=== PATIENT | male | born 1955 | race Caucasian/White ===

== ENCOUNTER 2021-03-10 10:59 | Inpatient (IN) | payer MEDICARE, BC ==
[2021-03-10] MEDS ORDERED: Acetaminophen 325 MG Tab PO PRN (12:56)
[2021-03-10] MEDS ORDERED: REMDESIVIR 200 MG in Sodium Chloride 0.9% 250 ML IV ONE ×2 (12:56→14:00)
[2021-03-10] MEDS ORDERED: Dexamethasone 4 MG/ML SDV IVPUSH SCH (13:00)
--- NOTE | 2021-03-10 13:01 | EDM.PDOC ---
ED HPI GENERAL MEDICAL PROBLEM - General Chief Complaint: Respiratory Problem Stated Complaint: COVID POS Time Seen by Provider: 03/10/21 12:55 Source of Information: Reports: Patient, Family, RN Notes Reviewed History Limitations: Reports: No Limitations - History of Present Illness INITIAL COMMENTS - FREE TEXT/NARRATIVE: 65-year-old gentleman presents emergency department today with shortness of breath and body aches. He states he was recently diagnosed with COVID-19 about a week ago he is unvaccinated has had fevers - Related Data Allergies Allergy/AdvReac Type Severity Reaction Status Date / Time hydrochlorothiazide Allergy Severe Anaphylactic Verified 03/10/21 11:37 Shock amlodipine Allergy Dizziness Verified 03/10/21 11:37 Home Meds: Home Meds Temazepam [Restoril] 30 mg PO BEDTIME 03/30/13 [History] Lisinopril 40 mg PO DAILY 09/27/14 [History] Aspirin 1,000 mg PO BID 04/22/18 [History] Metoprolol Succinate [Toprol XL 100mg] 100 mg PO DAILY 04/22/18 [History] Rivaroxaban [Xarelto] 20 mg PO DAILY 04/22/18 [History] cloNIDine HCL [Catapres] 0.1 mg PO BID 04/22/18 [History] Doxycycline [Doxycycline Hyclate] 100 mg PO Q12HR 03/10/21 [History] Past Medical History HEENT History: Reports: Other (See Below) 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 Cardiovascular History: Reports: Aneurysm, Blood Clots/VTE/DVT, High Cholesterol, Hypertension, Other (See Below) Other Cardiovascular History: englarged aorta Gastrointestinal History: Reports: Colon Polyp Musculoskeletal History: Reports: Arthritis, Back Pain, Chronic Endocrine/Metabolic History: Reports: Obesity/BMI 30+ Hematologic History: Reports: Anticoagulation Therapy Oncologic (Cancer) History: Reports: Squamous Cell Carcinoma - Infectious Disease History Infectious Disease History: Reports: Novel Coronavirus - Past Surgical History Head Surgeries/Procedures: Reports: None HEENT Surgical History: Reports: Naso-Sinus Surgery, Other (See Below) Other HEENT Surgeries/Procedures: 01/02/2006 surgery to remove tongue base cancer Cardiovascular Surgical History: Reports: None GI Surgical History: Reports: Appendectomy, Colonoscopy Male Surgical History: Reports: Vasectomy Endocrine Surgical History: Reports: None Musculoskeletal Surgical History: Reports: Arthroscopic Knee, Shoulder Surgery, Other (See Below) Other Musculoskeletal Surgeries/Procedures:: non-malignant arm pit turmor removed Oncologic Surgical History: Reports: Other (See Below) Other Oncologic Surgeries/Procedures: non-malignant tumor removed from arm-pit; squamous cell base of tongue Dermatological Surgical History: Reports: None Social & Family History - Family History Cardiac: Reports: Heart Failure Respiratory: Reports: COPD Oncologic: Reports: Cervix, Esophageal, Thyroid - Tobacco Use Tobacco Use Status *Q: Never Tobacco User Second Hand Smoke Exposure: No - Caffeine Use Caffeine Use: Reports: Coffee - Recreational Drug Use Recreational Drug Use: No ED ROS GENERAL - Review of Systems Review Of Systems: See Below Constitutional: Reports: Fever, Chills, Weakness, Fatigue HEENT: Reports: No Symptoms Respiratory: Reports: Shortness of Breath, Cough Cardiovascular: Reports: Dyspnea on Exertion GI/Abdominal: Reports: No Symptoms ED EXAM, GENERAL - Physical Exam Exam: See Below Exam Limited By: No Limitations General Appearance: Alert, WD/WN, No Apparent Distress Respiratory/Chest: No Respiratory Distress, Lungs Clear, Normal Breath Sounds, No Accessory Muscle Use, Chest Non-Tender Cardiovascular: Regular Rate, Rhythm, No Murmur GI/Abdominal: Soft, Non-Tender Course - Vital Signs Last Recorded V/S: Last Vital Signs Temp 97.7 F 03/10/21 11:36 Pulse 93 03/10/21 11:36 Resp 20 03/10/21 11:36 BP 96/66 03/10/21 11:36 Pulse Ox 89 L 03/10/21 11:36 - Orders/Labs/Meds Orders: Active Orders 24 hr Category Date Time Status HEPATIC FUNCTION PANEL,HFP [CHEM] DAILY Lab 03/11/21 13:00 Ordered HEPATIC FUNCTION PANEL,HFP [CHEM] DAILY Lab 03/12/21 13:00 Ordered HEPATIC FUNCTION PANEL,HFP [CHEM] DAILY Lab 03/13/21 13:00 Ordered HEPATIC FUNCTION PANEL,HFP [CHEM] DAILY Lab 03/14/21 13:00 Ordered Acetaminophen [TylenoL] Med 03/10/21 12:56 Active 650 mg PO Q4H PRN Remdesivir 200 mg Med 03/10/21 14:00 Active Sodium Chloride 0.9% [Normal Saline] 250 ml IV ONETIME dexAMETHasone [Decadron] Med 03/10/21 13:00 Active 6 mg IVPUSH DAILY Isolation [COMM] Stat Oth 03/10/21 12:56 Ordered Medication Orders Acetaminophen (Acetaminophen 325 Mg Tab) 650 mg PO Q4H PRN PRN Reason: Fever Greater Than 101 Last Admin: 03/10/21 13:34 Dose: 650 mg Documented by: MAYE Dexamethasone (Dexamethasone 4 Mg/Ml Sdv) 6 mg IVPUSH DAILY SAM Stop: 03/19/21 09:01 Last Admin: 03/10/21 13:32 Dose: 6 mg Documented by: MAYE Remdesivir 200 mg/ Sodium (Chloride) 250 mls @ 250 mls/hr IV ONETIME ONE Stop: 03/10/21 14:59 Last Admin: 03/10/21 13:36 Dose: 250 mls/hr Documented by: MAYE Labs: Laboratory Tests 03/10/21 03/10/21 03/10/21 Range/Units 13:12 13:12 13:12 WBC 6.3 (4.5-11.0) K/uL RBC 4.77 (4.30-5.90) M/uL Hgb 14.4 D (12.0-15.0) g/dL Hct 44.0 (40.0-54.0) % MCV 92 (80-98) fL MCH 30 (27-31) pg MCHC 33 (32-36) % Plt Count 173 (150-400) K/uL Neut % (Auto) 83.6 H (36-66) % Lymph % (Auto) 5.7 L (24-44) % [place] % (Auto) 10.5 H (2-6) % Eos % (Auto) 0.0 L (2-4) % Baso % (Auto) 0.2 (0-1) % Sodium 139 L (140-148) mmol/L Potassium 5.7 H (3.6-5.2) mmol/L Chloride 101 (100-108) mmol/L Carbon Dioxide 25 (21-32) mmol/L Anion Gap 18.7 H (5.0-14.0) mmol/L BUN 49 H D (7-18) mg/dL Creatinine 0.9 (0.8-1.3) mg/dL Est Cr Clr Drug Dosing 81.83 mL/min Estimated GFR (MDRD) > 60 (>60) Glucose 174 H (74-106) mg/dL Lactic Acid 1.6 (0.4-2.0) mmol/L Calcium 9.2 (8.5-10.1) mg/dL Total Bilirubin 0.7 D (0.2-1.0) mg/dL Direct Bilirubin 0.05 (0.0-0.2) mg/dL Indirect Bilirubin TNP AST 43 H (15-37) U/L ALT 38 (12-78) U/L Alkaline Phosphatase 54 (46-116) U/L C-Reactive Protein 12.33 H (0.0-0.3) mg/dL Total Protein 6.5 (6.4-8.2) g/dL Albumin 2.8 L (3.4-5.0) g/dL Globulin 3.7 H (2.3-3.5) g/dL Albumin/Globulin Ratio 0.8 L (1.2-2.2) Procalcitonin ng/mL 03/10/21 Range/Units 13:12 WBC (4.5-11.0) K/uL RBC (4.30-5.90) M/uL Hgb (12.0-15.0) g/dL Hct (40.0-54.0) % MCV (80-98) fL MCH (27-31) pg MCHC (32-36) % Plt Count (150-400) K/uL Neut % (Auto) (36-66) % Lymph % (Auto) (24-44) % [place] % (Auto) (2-6) % Eos % (Auto) (2-4) % Baso % (Auto) (0-1) % Sodium (140-148) mmol/L Potassium (3.6-5.2) mmol/L Chloride (100-108) mmol/L Carbon Dioxide (21-32) mmol/L Anion Gap (5.0-14.0) mmol/L BUN (7-18) mg/dL Creatinine (0.8-1.3) mg/dL Est Cr Clr Drug Dosing mL/min Estimated GFR (MDRD) (>60) Glucose (74-106) mg/dL Lactic Acid (0.4-2.0) mmol/L Calcium (8.5-10.1) mg/dL Total Bilirubin (0.2-1.0) mg/dL Direct Bilirubin (0.0-0.2) mg/dL Indirect Bilirubin AST (15-37) U/L ALT (12-78) U/L Alkaline Phosphatase (46-116) U/L C-Reactive Protein (0.0-0.3) mg/dL Total Protein (6.4-8.2) g/dL Albumin (3.4-5.0) g/dL Globulin (2.3-3.5) g/dL Albumin/Globulin Ratio (1.2-2.2) Procalcitonin 0.07 ng/mL Meds: Medications Generic Name Dose Route Start Last Admin Trade Name Freq PRN Reason Stop Dose Admin Acetaminophen 650 mg 03/10/21 12:56 03/10/21 13:34 Acetaminophen 325 Mg Tab PO 650 mg Q4H PRN Administration Fever Greater Than 101 Dexamethasone 6 mg 03/10/21 13:00 03/10/21 13:32 Dexamethasone 4 Mg/Ml Sdv IVPUSH 03/19/21 09:01 6 mg DAILY SAM Administration Remdesivir 200 mg/ Sodium 250 mls @ 250 mls/hr 03/10/21 14:00 03/10/21 13:36 Chloride IV 03/10/21 14:59 250 mls/hr ONETIME ONE Administration Departure - Departure Time of Disposition: 14:10 Disposition: Admitted As Inpatient 66 Condition: Fair Clinical Impression: COVID-19 - Discharge Information Referrals: PCP,Unknown [Primary Care Provider] - Forms: ED Department Discharge Sepsis Event Note (ED) - Focused Exam Vital Signs: Vital Signs Temp Pulse Resp BP Pulse Ox 03/10/21 11:36 97.7 F 93 20 96/66 89 L 03/10/21 11:29 97.7 F 93 20 96/66 89 L - My Orders Last 24 Hours: My Active Orders 03/10/21 12:56 Acetaminophen [TylenoL] 650 mg PO Q4H PRN Isolation [COMM] Stat 03/10/21 13:00 dexAMETHasone [Decadron] 6 mg IVPUSH DAILY 03/10/21 14:00 Remdesivir 200 mg Sodium Chloride 0.9% [Normal Saline] 250 ml IV ONETIME 03/11/21 13:00 HEPATIC FUNCTION PANEL,HFP [CHEM] DAILY 03/12/21 13:00 HEPATIC FUNCTION PANEL,HFP [CHEM] DAILY 03/13/21 13:00 HEPATIC FUNCTION PANEL,HFP [CHEM] DAILY 03/14/21 13:00 HEPATIC FUNCTION PANEL,HFP [CHEM] DAILY - Assessment/Plan Last 24 Hours: My Active Orders 03/10/21 12:56 Acetaminophen [TylenoL] 650 mg PO Q4H PRN Isolation [COMM] Stat 03/10/21 13:00 dexAMETHasone [Decadron] 6 mg IVPUSH DAILY 03/10/21 14:00 Remdesivir 200 mg Sodium Chloride 0.9% [Normal Saline] 250 ml IV ONETIME 03/11/21 13:00 HEPATIC FUNCTION PANEL,HFP [CHEM] DAILY 03/12/21 13:00 HEPATIC FUNCTION PANEL,HFP [CHEM] DAILY 03/13/21 13:00 HEPATIC FUNCTION PANEL,HFP [CHEM] DAILY 03/14/21 13:00 HEPATIC FUNCTION PANEL,HFP [CHEM] DAILY Plan: Assessment Acuity = acute Site and laterality = viral syndrome with hypoxia Etiology = COVID-19 Manifestations = none Location of injury = Home Lab values = CBC unremarkable, potassium elevated 5.7 consistent with hyperkalemia lactic acid normal 1.6 CRP elevated 4.3 procalcitonin low at 0.07 Plan Call discussed case with hospitalist on-call agreed to come evaluate patient emergency department for admission remdesivir, dexamethasone and Lovenox in the emergency department This note was dictated using [employer] voice recognition software please call with any questions on syntax or grammar.
--- NOTE | 2021-03-10 14:06 | CR ---
CHEST: Portable 03/10/2021 at 1:34 PM CLINICAL HISTORY:Respiratory failure COMPARISON:CT 2017 FINDINGS: The heart is enlarged. Pulmonary vascularity is normal. There are atherosclerotic changes in the aorta. There are patchy bilateral infiltrates left greater than right. There are no effusions. IMPRESSION: Bilateral pneumonic infiltrates left greater than right Cardiomegaly
--- NOTE | 2021-03-10 18:39 | CRLUS ---
For Patients: As a result of the Cures Act, medical imaging exams and procedure reports are released immediately into your electronic medical record. You may view this report before your referring provider. If you have questions, please contact your health care provider. INDICATION: Ascites. TECHNIQUE: Limited grayscale examination of the abdomen to evaluate for ascites. COMPARISON: None. FINDINGS: No ascites demonstrated. IMPRESSION: No ascites demonstrated. Dictated by Jony Sharma MD @ 03/10/2021 6:38:15 PM (Electronically Signed)
--- NOTE | 2021-03-10 20:31 | PCM.HP.2 ---
H&P History of Present Illness - General Date of Service: 03/10/21 Admit Problem/Dx: Admission Diagnosis/Problem Admission Diagnosis/Problem Hypoxia Source of Information: Patient History Limitations: Reports: No Limitations - History of Present Illness Initial Comments - Free Text/Narative: Mr. Yo is a 65-year-old male with a remote history (2005) of squamous cell carcinoma of the tongue and a current aortic aneurysm who presents with shortness of breath and body aches. He was diagnosed with COVID-19 a week ago and has been having fevers chills and difficulty breathing since that time. He is unvaccinated for COVID-19. He states that he has been told he may need surgery on his aortic aneurysm. He also has a history of blood clots in his lower extremities which he takes rivaroxaban for. Over the past few months he has noticed that he has lost a significant amount of weight. He is a former chronic heavy drinker who quit drinking recently. He states that he has noticed that the size of his abdomen has increased significantly over time. He states that his abdomen sometimes becomes uncomfortable especially with laying down. He also states that he is no longer able to lay on his stomach. - Related Data Allergies/Adverse Reactions: Allergies Allergy/AdvReac Type Severity Reaction Status Date / Time hydrochlorothiazide Allergy Severe Anaphylactic Verified 03/10/21 11:37 Shock amlodipine Allergy Dizziness Verified 03/10/21 11:37 Home Medications: Home Meds Temazepam [Restoril] 30 mg PO BEDTIME 03/30/13 [History] Lisinopril 40 mg PO DAILY 09/27/14 [History] Aspirin 1,000 mg PO BID 04/22/18 [History] Metoprolol Succinate [Toprol XL 100mg] 100 mg PO DAILY 04/22/18 [History] Rivaroxaban [Xarelto] 20 mg PO DAILY 04/22/18 [History] cloNIDine HCL [Catapres] 0.1 mg PO BID 04/22/18 [History] Doxycycline [Doxycycline Hyclate] 100 mg PO Q12HR 03/10/21 [History] Past Medical History HEENT History: Reports: Other (See Below) 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 Cardiovascular History: Reports: Aneurysm, Blood Clots/VTE/DVT, High Cholesterol, Hypertension, Other (See Below) Other Cardiovascular History: enlarged aorta Gastrointestinal History: Reports: Colon Polyp Genitourinary History: Reports: None Musculoskeletal History: Reports: Arthritis, Back Pain, Chronic Endocrine/Metabolic History: Reports: Obesity/BMI 30+ Hematologic History: Reports: Anticoagulation Therapy Oncologic (Cancer) History: Reports: Squamous Cell Carcinoma - Infectious Disease History Infectious Disease History: Reports: Novel Coronavirus - Past Surgical History Head Surgeries/Procedures: Reports: None HEENT Surgical History: Reports: Naso-Sinus Surgery, Other (See Below) Other HEENT Surgeries/Procedures: 01/02/2006 surgery to remove tongue base cancer Cardiovascular Surgical History: Reports: None GI Surgical History: Reports: Appendectomy, Colonoscopy Male Surgical History: Reports: Vasectomy Endocrine Surgical History: Reports: None Musculoskeletal Surgical History: Reports: Arthroscopic Knee, Shoulder Surgery, Other (See Below) Other Musculoskeletal Surgeries/Procedures:: non-malignant arm pit turmor rem tino Oncologic Surgical History: Reports: Other (See Below) Other Oncologic Surgeries/Procedures: non-malignant tumor removed from arm-pit; squamous cell base of tongue Dermatological Surgical History: Reports: None Social & Family History - Family History Family Medical History: No Pertinent Family History Cardiac: Reports: Heart Failure Respiratory: Reports: COPD Oncologic: Reports: Cervix, Esophageal, Thyroid - Tobacco Use Tobacco Use Status *Q: Never Tobacco User Second Hand Smoke Exposure: No - Caffeine Use Caffeine Use: Reports: Coffee - Alcohol Use Days Per Week of Alcohol Use: 5 Number of Drinks Per Day: 2 Total Drinks Per Week: 10 Date of Last Drink: 02/25/21 Time of Last Drink: 21:00 - Recreational Drug Use Recreational Drug Use: No H&P Review of Systems - Review of Systems: Review Of Systems: See Below General: Reports: Fever, Chills, Malaise, Fatigue, Decreased Appetite, Weight Loss HEENT: Reports: No Symptoms Pulmonary: Reports: Shortness of Breath Cardiovascular: Reports: Other (Aortic aneurysm) Gastrointestinal: Reports: Distension, Other (Abdominal discomfort) Genitourinary: Reports: No Symptoms Musculoskeletal: Reports: Neck Pain, Back Pain Skin: Reports: No Symptoms Psychiatric: Reports: No Symptoms Neurological: Reports: No Symptoms Hematologic/Lymphatic: Reports: Other (Chronic anticoagulation therapy) Exam - Exam Exam: See Below - Vital Signs Vital Signs: Last Vital Signs Temp 96.8 F L 03/10/21 19:00 Pulse 93 03/10/21 19:00 Resp 18 03/10/21 19:00 BP 126/86 03/10/21 19:00 Pulse Ox 96 03/10/21 20:00 Weight: 216 lb - Exam Quality Assessment: Supplemental Oxygen General: Alert, Oriented, 4 HEENT: Conjunctiva Clear, EOMI, Hearing Intact, Mucosa Moist & [place] Neck: Supple, Trachea Midline, 2 Lungs: Clear to Auscultation, Normal Respiratory Effort Cardiovascular: Regular Rate, Regular Rhythm GI/Abdominal Exam: Normal Bowel Sounds, Soft, Non-Tender, No Abnormal Bruit, Distended (Male) Exam: Circumcised Extremities: Normal Inspection, Non-Tender, No Pedal Edema Skin: Warm, Dry, Intact Neuro Extensive - Mental Status: Alert, Oriented x3, Normal Mood/Affect, Normal Cognition Psychiatric: Alert, Normal Affect, Normal Mood - Patient Data Lab Results Last 24 hrs: Laboratory Results - last 24 hr 03/10/21 03/10/21 03/10/21 Range/Units 13:12 13:12 13:12 WBC 6.3 (4.5-11.0) K/uL RBC 4.77 (4.30-5.90) M/uL Hgb 14.4 D (12.0-15.0) g/dL Hct 44.0 (40.0-54.0) % MCV 92 (80-98) fL MCH 30 (27-31) pg MCHC 33 (32-36) % Plt Count 173 (150-400) K/uL Neut % (Auto) 83.6 H (36-66) % Lymph % (Auto) 5.7 L (24-44) % [place] % (Auto) 10.5 H (2-6) % Eos % (Auto) 0.0 L (2-4) % Baso % (Auto) 0.2 (0-1) % Sodium 139 L (140-148) mmol/L Potassium 5.7 H (3.6-5.2) mmol/L Chloride 101 (100-108) mmol/L Carbon Dioxide 25 (21-32) mmol/L Anion Gap 18.7 H (5.0-14.0) mmol/L BUN 49 H D (7-18) mg/dL Creatinine 0.9 (0.8-1.3) mg/dL Est Cr Clr Drug Dosing 81.83 mL/min Estimated GFR (MDRD) > 60 (>60) Glucose 174 H (74-106) mg/dL Lactic Acid 1.6 (0.4-2.0) mmol/L Calcium 9.2 (8.5-10.1) mg/dL Total Bilirubin 0.7 D (0.2-1.0) mg/dL Direct Bilirubin 0.05 (0.0-0.2) mg/dL Indirect Bilirubin TNP AST 43 H (15-37) U/L ALT 38 (12-78) U/L Alkaline Phosphatase 54 (46-116) U/L C-Reactive Protein 12.33 H (0.0-0.3) mg/dL Total Protein 6.5 (6.4-8.2) g/dL Albumin 2.8 L (3.4-5.0) g/dL Globulin 3.7 H (2.3-3.5) g/dL Albumin/Globulin Ratio 0.8 L (1.2-2.2) Procalcitonin ng/mL 03/10/21 Range/Units 13:12 WBC (4.5-11.0) K/uL RBC (4.30-5.90) M/uL Hgb (12.0-15.0) g/dL Hct (40.0-54.0) % MCV (80-98) fL MCH (27-31) pg MCHC (32-36) % Plt Count (150-400) K/uL Neut % (Auto) (36-66) % Lymph % (Auto) (24-44) % [place] % (Auto) (2-6) % Eos % (Auto) (2-4) % Baso % (Auto) (0-1) % Sodium (140-148) mmol/L Potassium (3.6-5.2) mmol/L Chloride (100-108) mmol/L Carbon Dioxide (21-32) mmol/L Anion Gap (5.0-14.0) mmol/L BUN (7-18) mg/dL Creatinine (0.8-1.3) mg/dL Est Cr Clr Drug Dosing mL/min Estimated GFR (MDRD) (>60) Glucose (74-106) mg/dL Lactic Acid (0.4-2.0) mmol/L Calcium (8.5-10.1) mg/dL Total Bilirubin (0.2-1.0) mg/dL Direct Bilirubin (0.0-0.2) mg/dL Indirect Bilirubin AST (15-37) U/L ALT (12-78) U/L Alkaline Phosphatase (46-116) U/L C-Reactive Protein (0.0-0.3) mg/dL Total Protein (6.4-8.2) g/dL Albumin (3.4-5.0) g/dL Globulin (2.3-3.5) g/dL Albumin/Globulin Ratio (1.2-2.2) Procalcitonin 0.07 ng/mL Result Diagrams: 03/10/21 13:12 03/10/21 13:12 Sepsis Event Note - Evaluation Sepsis Screening Result: No Definite Risk - Focused Exam Vital Signs: Vital Signs Temp Pulse Resp BP Pulse Ox 03/10/21 20:00 96 03/10/21 19:56 96 03/10/21 19:00 96.8 F L 93 18 126/86 94 L 03/10/21 16:11 89 L 03/10/21 15:27 97.4 F 89 20 119/77 90 L 03/10/21 11:36 97.7 F 93 20 96/66 89 L 03/10/21 11:29 97.7 F 93 20 96/66 89 L - Problem List (1) Unintentional weight loss SNOMED Code(s): 892924368 ICD Code: R63.4 - ABNORMAL WEIGHT LOSS Status: Acute Current Visit: Yes (2) COVID-19 SNOMED Code(s): 837585451 ICD Code: U07.1 - COVID-19 Status: Acute Current Visit: Yes (3) AA (aortic aneurysm) SNOMED Code(s): 85084471 ICD Code: I71.9 - AORTIC ANEURYSM OF UNSPECIFIED SITE, WITHOUT RUPTURE Status: Chronic Current Visit: No (4) Essential hypertension SNOMED Code(s): 53580300 ICD Code: I10 - ESSENTIAL (PRIMARY) HYPERTENSION Status: Chronic Current Visit: No (5) History of squamous cell carcinoma SNOMED Code(s): 55890592087206 ICD Code: Z85.89 - PERSONAL HISTORY OF MALIGNANT NEOPLASM OF ORGANS AND SYSTEMS Status: Chronic Current Visit: No Problem List Initiated/Reviewed/Updated: Yes Orders Last 24hrs: Active Orders 24 hr Category Date Time Status Admission Status [Patient Status] [ADT] Routine ADT 03/10/21 14:22 Active Cardiac Monitoring [RC] CONTINUOUS Care 03/10/21 14:22 Active Overnight Pulse Oximetry [RC] Click to Edit Care 03/10/21 15:38 Active Oxygen Therapy [RC] PRN Care 03/10/21 15:57 Active Vital Signs [RC] Q4H Care 03/10/21 15:57 Active Heart Healthy Diet [DIET] Diet 03/10/21 Dinner Active HEPATIC FUNCTION PANEL,HFP [CHEM] DAILY Lab 03/11/21 13:00 Ordered HEPATIC FUNCTION PANEL,HFP [CHEM] DAILY Lab 03/12/21 13:00 Ordered HEPATIC FUNCTION PANEL,HFP [CHEM] DAILY Lab 03/13/21 13:00 Ordered HEPATIC FUNCTION PANEL,HFP [CHEM] DAILY Lab 03/14/21 13:00 Ordered Acetaminophen [TylenoL] Med 03/10/21 12:56 Active 650 mg PO Q4H PRN Acetaminophen/Codeine [Tylenol with Codeine No.3 300MG/ Med 03/10/21 20:13 Active 30MG] 1 tab PO Q4H PRN Metoprolol Succinate [Toprol XL] Med 03/11/21 09:00 Active 100 mg PO DAILY Remdesivir 100 mg Med 03/11/21 14:00 Active Sodium Chloride 0.9% [Normal Saline] 100 ml IV Q24H Rivaroxaban [Xarelto] Med 03/11/21 09:00 Active 20 mg PO DAILY Temazepam [Restoril] Med 03/10/21 21:00 Active 30 mg PO BEDTIME cloNIDine [Catapres] Med 03/10/21 21:00 Active 0.1 mg PO BID dexAMETHasone [Decadron] Med 03/11/21 14:00 Active 6 mg IVPUSH Q24H lisinopriL [Prinivil] Med 03/11/21 09:00 Active 40 mg PO DAILY Isolation [COMM] Stat Oth 03/10/21 12:56 Ordered Pulse Oximetry Continuous Monitoring [OM.PC] Routine Oth 03/10/21 15:38 Ordered Medication Orders Acetaminophen (Acetaminophen 325 Mg Tab) 650 mg PO Q4H PRN PRN Reason: Fever Greater Than 101 Last Admin: 03/10/21 13:34 Dose: 650 mg Documented by: MAYE Acetaminophen/Codeine Phosphate (Acetaminophen/Codeine 300-30 Mg Tab) 1 tab PO Q4H PRN PRN Reason: Pain Clonidine HCl (Clonidine 0.1 Mg Tab) 0.1 mg PO BID [facility] Dexamethasone (Dexamethasone 4 Mg/Ml Sdv) 6 mg IVPUSH Q24H [facility] Stop: 03/20/21 14:01 Remdesivir 100 mg/ Sodium (Chloride) 100 mls @ 100 mls/hr IV Q24H [facility] Stop: 03/14/21 14:59 Lisinopril (Lisinopril 20 Mg Tab) 40 mg PO DAILY SAM Metoprolol Succinate (Metoprolol Succinate 50 Mg Tab.Er) 100 mg PO DAILY [facility] Rivaroxaban (Rivaroxaban 10 Mg Tab) 20 mg PO DAILY [facility] Temazepam (Temazepam 15 Mg Cap) 30 mg PO BEDTIME [facility] Assessment/Plan Comment:: COVID-19 pneumonia requiring supplemental oxygen -Has received remdesivir loading dose will continue with additional days -On rivaroxaban so will not be using enoxaparin -Decadron 6 mg daily for 10 days -Will monitor for hypoxia and supplement for SPO2 less than 90% Unintentional weight loss and abdominal distention -He does have a history of cancer so this unintentional weight loss is concerning. He also has a significant history for alcohol abuse and dependency which he has quit. I am concerned that he may have liver disease with ascites so I have ordered an abdominal ultrasound. 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 I reasonably expect the patient will require inpatient services that span a period of over 2 midnights. My rationale for medically necessary inpatient care will be found in the admission history and physical and progress notes. I reasonably expect the patient to be discharged or transferred within 96 hours after [facility] Disposition: home with self-care on discharge Plan: We will do the full course of remdesivir, continue his anticoagulation with rivaroxaban and give Decadron. I am going to get an abdominal ultrasound to evaluate his liver. If I do not find a cause of his unintentional weight loss this will have to be worked up outpatient as it is not an acute issue. - Mortality Measure Prognosis:: Good
[2021-03-10] MEDS: cloNIDine 0.1 MG Tab PO SCH (20:52)
[2021-03-10] MEDS: Temazepam 15 MG Cap PO SCH (20:52)
[2021-03-10] MEDS: Acetaminophen/Codeine 300-30 MG Tab PO PRN (20:53)
[2021-03-11] MEDS: Acetaminophen/Codeine 300-30 MG Tab PO PRN (03:49)
[2021-03-11] MEDS: cloNIDine 0.1 MG Tab PO SCH ×2 (08:27→21:49)
[2021-03-11] MEDS: Lisinopril 20 MG Tab PO SCH (08:27)
[2021-03-11] MEDS: Metoprolol Succinate 50 MG Tab.ER PO SCH (08:27)
[2021-03-11] MEDS: Rivaroxaban 10 MG Tab PO SCH (08:28)
[2021-03-11] MEDS ORDERED: Enoxaparin 40 MG/0.4 ML Syringe SUBCUT SCH (09:00)
[2021-03-11] MEDS: Dexamethasone 4 MG/ML SDV IVPUSH SCH (13:34)
[2021-03-11] MEDS: REMDESIVIR 100 MG in Sodium Chloride 0.9% 100 ML IV SCH (13:35)
--- NOTE | 2021-03-11 19:15 | PCM.PN ---
- General Info Date of Service: 03/11/21 Admission Dx/Problem (Free Text): Admission Diagnosis/Problem Admission Diagnosis/Problem Hypoxia Subjective Update: Mr. Villanueva is doing okay today. He is requiring increasing supplementary oxygen needs. We are having difficulty getting cardiac capture on his leads as he has a very hairy chest. Occasionally on the monitor it will look like he is in ventricular fibrillation however I did examine him during 1 of these episodes today and he was within his regular rate. Movement of his right arm is causing the artifact that appears to be ventricular fibrillation even though it is not. He is feeling lethargic today. - Review of Systems General: Reports: Fatigue HEENT: Reports: No Symptoms Pulmonary: Reports: No Symptoms Cardiovascular: Reports: No Symptoms Gastrointestinal: Reports: No Symptoms Genitourinary: Reports: No Symptoms Musculoskeletal: Reports: No Symptoms Skin: Reports: No Symptoms Neurological: Reports: No Symptoms Psychiatric: Reports: No Symptoms - Patient Data Vitals - Most Recent: Last Vital Signs Temp 96.6 F L 03/11/21 15:00 Pulse 90 03/11/21 15:00 Resp 18 03/11/21 15:00 BP 91/61 03/11/21 11:08 Pulse Ox 93 L 03/11/21 15:00 Weight - Most Recent: 216 lb I&O - Last 24 Hours: Intake & Output 03/11/21 03/11/21 03/11/21 06:59 14:59 22:59 Intake Total 580 360 Output Total 500 200 100 Balance -500 380 260 Lab Results Last 24 Hours: Laboratory Results - last 24 hr 03/11/21 Range/Units 07:12 Total Bilirubin 0.4 (0.2-1.0) mg/dL Direct Bilirubin 0.14 (0.0-0.2) mg/dL Indirect Bilirubin 0.26 AST 18 (15-37) U/L ALT 32 (12-78) U/L Alkaline Phosphatase 54 (46-116) U/L Total Protein 5.8 L (6.4-8.2) g/dL Albumin 2.6 L (3.4-5.0) g/dL Globulin 3.2 (2.3-3.5) g/dL Albumin/Globulin Ratio 0.8 L (1.2-2.2) Med Orders - Current: Current Medications Acetaminophen (Acetaminophen 325 Mg Tab) 650 mg PO Q4H PRN PRN Reason: Fever Greater Than 101 Last Admin: 03/10/21 13:34 Dose: 650 mg Documented by: Acetaminophen/Codeine Phosphate (Acetaminophen/Codeine 300-30 Mg Tab) 1 tab PO Q4H PRN PRN Reason: Pain Last Admin: 03/11/21 03:49 Dose: 1 tab Documented by: Clonidine HCl (Clonidine 0.1 Mg Tab) 0.1 mg PO BID [facility] Last Admin: 03/11/21 08:27 Dose: 0.1 mg Documented by: Dexamethasone (Dexamethasone 4 Mg/Ml Sdv) 6 mg IVPUSH Q24H SAM Stop: 03/20/21 14:01 Last Admin: 03/11/21 13:34 Dose: 6 mg Documented by: Remdesivir 100 mg/ Sodium (Chloride) 100 mls @ 100 mls/hr IV Q24H SAM Stop: 03/14/21 14:59 Last Admin: 03/11/21 13:35 Dose: 100 mls/hr Documented by: Lisinopril (Lisinopril 20 Mg Tab) 40 mg PO DAILY [facility] Last Admin: 03/11/21 08:27 Dose: 40 mg Documented by: Metoprolol Succinate (Metoprolol Succinate 50 Mg Tab.Er) 100 mg PO DAILY [facility] [place] Last Admin: 03/11/21 08:27 Dose: 100 mg Documented by: Rivaroxaban (Rivaroxaban 10 Mg Tab) 20 mg PO DAILY [facility] Last Admin: 03/11/21 08:28 Dose: 20 mg Documented by: Temazepam (Temazepam 15 Mg Cap) 30 mg PO BEDTIME [facility] Last Admin: 03/10/21 20:52 Dose: 30 mg Documented by: Trolamine Salicylate (Trolamine Salicylate/Aloe Vera 10% Crm 85 Gm Tube) 0 gm TOP Q1H PRN PRN Reason: Pain/Fever Discontinued Medications Dexamethasone (Dexamethasone 4 Mg/Ml Sdv) 6 mg IVPUSH DAILY [facility] Stop: 03/19/21 09:01 Last Admin: 03/10/21 13:32 Dose: 6 mg Documented by: Enoxaparin Sodium (Enoxaparin 40 Mg/0.4 Ml Syringe) 40 mg SUBCUT DAILY [facility] Remdesivir 200 mg/ Sodium (Chloride) 250 mls @ 250 mls/hr IV ONETIME ONE Stop: 03/10/21 14:59 Last Admin: 03/10/21 13:36 Dose: 250 mls/hr Documented by: - Exam General: Alert, Oriented, Cooperative, No Acute Distress HEENT: Pupils Equal, EOMI, Mucous Membr. Moist/[place] Neck: Supple Lungs: Clear to Auscultation, Normal Respiratory Effort Cardiovascular: Regular Rate, Regular Rhythm GI/Abdominal Exam: Normal Bowel Sounds, Soft, Non-Tender, Distended (Male) Exam: Other (Gynecomastia) Extremities: Normal Inspection, Non-Tender, No Pedal Edema, Normal Capillary Refill Skin: Warm, Dry, Intact Neurological: No New Focal Deficit Psy/Mental Status: Alert, Normal Affect, Normal Mood - Patient Data Lab Results Last 24 hrs: Laboratory Results - last 24 hr 03/11/21 Range/Units 07:12 Total Bilirubin 0.4 (0.2-1.0) mg/dL Direct Bilirubin 0.14 (0.0-0.2) mg/dL Indirect Bilirubin 0.26 AST 18 (15-37) U/L ALT 32 (12-78) U/L Alkaline Phosphatase 54 (46-116) U/L Total Protein 5.8 L (6.4-8.2) g/dL Albumin 2.6 L (3.4-5.0) g/dL Globulin 3.2 (2.3-3.5) g/dL Albumin/Globulin Ratio 0.8 L (1.2-2.2) Result Diagrams: 03/10/21 13:12 03/10/21 13:12 Sepsis Event Note - Evaluation Sepsis Screening Result: No Definite Risk - Focused Exam Vital Signs: Vital Signs Temp Pulse Pulse Resp BP BP Pulse Ox 03/11/21 15:00 96.6 F L 90 18 93 L 03/11/21 12:12 88 L 03/11/21 11:08 95.9 F L 80 18 91/61 89 L 03/11/21 10:02 90 L 03/11/21 09:41 89 L 03/11/21 08:27 89 106/75 96 03/11/21 07:55 96.7 F L 89 18 106/75 91 L - Problem List & Annotations (1) Unintentional weight loss SNOMED Code(s): 738221163 Code(s): R63.4 - ABNORMAL WEIGHT LOSS Status: Acute Current Visit: Yes (2) COVID-19 SNOMED Code(s): 740262532 Code(s): U07.1 - COVID-19 Status: Acute Current Visit: Yes (3) AA (aortic aneurysm) SNOMED Code(s): 70442867 Code(s): I71.9 - AORTIC ANEURYSM OF UNSPECIFIED SITE, WITHOUT RUPTURE Status: Chronic Current Visit: No (4) Essential hypertension SNOMED Code(s): 17137564 Code(s): I10 - ESSENTIAL (PRIMARY) HYPERTENSION Status: Chronic Current Visit: No (5) History of squamous cell carcinoma SNOMED Code(s): 13421427019256 Code(s): Z85.89 - PERSONAL HISTORY OF MALIGNANT NEOPLASM OF ORGANS AND SYSTEMS Status: Chronic Current Visit: No - Problem List Review Problem List Initiated/Reviewed/Updated: Yes - My Orders Last 24 Hours: My Active Orders 03/10/21 20:13 Acetaminophen/Codeine [Tylenol with Codeine No.3 300MG/30MG] 1 tab PO Q4H PRN 03/10/21 21:00 Temazepam [Restoril] 30 mg PO BEDTIME cloNIDine [Catapres] 0.1 mg PO BID 03/11/21 08:35 EKG 12 Lead [EK] Routine 03/11/21 09:00 Metoprolol Succinate [Toprol XL] 100 mg PO DAILY Rivaroxaban [Xarelto] 20 mg PO DAILY lisinopriL [Prinivil] 40 mg PO DAILY 03/11/21 14:00 Remdesivir 100 mg Sodium Chloride 0.9% [Normal Saline] 100 ml IV Q24H dexAMETHasone [Decadron] 6 mg IVPUSH Q24H 03/11/21 15:00 Trolamine Salicylate/Aloe Vera [Aspercreme 10%] 0 gm TOP Q1H PRN 03/12/21 07:00 BASIC METABOLIC PANEL,BMP [CHEM] Routine CBC W/O DIFF,HEMOGRAM [HEME] Routine HEPATIC FUNCTION PANEL,HFP [CHEM] DAILY 03/13/21 07:00 HEPATIC FUNCTION PANEL,HFP [CHEM] DAILY 03/14/21 07:00 HEPATIC FUNCTION PANEL,HFP [CHEM] DAILY 03/15/21 07:00 HEPATIC FUNCTION PANEL,HFP [CHEM] DAILY 03/16/21 07:00 HEPATIC FUNCTION PANEL,HFP [CHEM] DAILY 03/17/21 07:00 HEPATIC FUNCTION PANEL,HFP [CHEM] DAILY - Plan Plan:: COVID-19 pneumonia requiring supplemental oxygen -Has received remdesivir loading dose will continue with additional days -On rivaroxaban so will not be using enoxaparin -Decadron 6 mg daily for 10 days -Will monitor for hypoxia and supplement for SPO2 less than 90% Unintentional weight loss and abdominal distention -Abdominal ultrasound did not comment on the size or echogenicity of the liver. All it stated was there was no ascites present. CT abdomen with and without contrast has been ordered Gynecomastia -suspected liver disease Abdominal aortic aneurysm -He states that he may need surgery for this -Will monitor for any cardiac compromise Chronic pain of the neck -Takes Tylenol with codeine for his chronically at home -Will treat with Tylenol 3 as needed Essential hypertension-currently blood pressure is controlled -I am going to hold his home medications as his blood pressure is in the 90s systolic -At home he takes clonidine lisinopril and metoprolol, will restart these as necessary Insomnia -Continue home dose of temazepam as needed for sleep 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 We will continue to supplement oxygen as needed.
[2021-03-11] MEDS ORDERED: Sodium Chloride 0.9% 80 ML IV SCH (20:30)
[2021-03-11] MEDS ORDERED: Iopamidol 612 MG/ML 150 ML Bottle IV SCH (20:30)
[2021-03-11] MEDS: Trolamine Salicylate/Aloe Vera 10% Crm 85 GM Tube TOP PRN (21:52)
[2021-03-11] MEDS: Temazepam 15 MG Cap PO SCH (21:52)
--- NOTE | 2021-03-11 22:11 | CRLCT ---
For Patients: As a result of the 21st Century Cures Act, medical imaging exams and procedure reports are released immediately into your electronic medical record. You may view this report before your referring provider. If you have questions, please contact your health care provider. INDICATION: Abdominal distension. Unintended weight loss. COMPARISON: Ultrasound of the abdomen limited from yesterday and CT of the abdomen and pelvis from 04/21/2018. TECHNIQUE: CT examination of the abdomen and pelvis was performed with the uneventful intravenous administration of 100 cc of Omnipaque 350 while 2 mm thick axial sections were obtained from the lung bases through the pubic symphysis. Oral contrast was not administered. Please note that all CT scans at this facility use dose modulation, iterative reconstruction, and/or weight-based dosing when appropriate to reduce radiation dose to as low as reasonably achievable. FINDINGS: In the abdomen, the liver remains slightly low in density, representing mild fatty infiltration. There is no sign of mass. The spleen, pancreas and adrenals are normal in appearance. Again seen is a tiny cyst in the lower pole of the left kidney. The kidneys are otherwise normal in appearance. The gallbladder is normal in appearance. The abdominal aorta is normal in caliber with no sign of dilatation. There is no sign of retroperitoneal mass or adenopathy. The stomach, loops of small bowel, and colon in the abdomen are normal in appearance. There is no change in size of a small left paramedian superior abdominal ventral wall hernia. There are new postoperative changes from repair of a periumbilical hernia. There is weakening of the fascia in the periumbilical region with new anterior protrusion of peritoneal contents, but without daniel hernia formation. There is a new midline scar extending from the superior periumbilical region into the lower pelvis without hernia or postoperative fluid collection. In the pelvis, the appendix is nonvisualized, but there is no sign of an inflammatory process in the area of the appendix. During the interval, there has been resection in the area of the midsigmoid colon, with removal of the area of inflammation seen on the previous study. The anastomosis is patent with no sign of any structure. The previously seen gas within the urinary bladder is no longer present, and the abscess located superior to the urinary bladder has been resected. The findings are that of satisfactory repair of a colovesical fistula. There is stable mild diverticulosis of the proximal sigmoid colon, with no sign of diverticulitis. There is a new small bowel anastomosis of the distal ileum with no sign of any structure. The rest of the loops of distal small bowel remain normal in appearance. The prostate remains moderately enlarged and is otherwise normal in appearance. The urinary bladder is now normal in appearance. There is no sign of pelvic or inguinal mass or adenopathy. Again seen are small bilateral fat containing inguinal hernias. There is no sign of free air or free fluid in the abdomen or pelvis. There is mild patchy linear density in the posterior lung bases, new compared to the previous study, consistent with new atelectasis. Again seen is minimal scoliosis of the lumbar spine convex towards the left. IMPRESSION: Nothing seen to explain the patient`s abdominal distention, with no sign of obstruction or ileus. Nothing seen to explain the patient`s unintentional weight loss, with no evidence of malignancy. CT of the abdomen shows stable mild fatty infiltration of the liver. CT of the pelvis shows satisfactory appearance status post mid sigmoid resection and anastomosis. Satisfactory appearance status post repair of colovesical fistula. No change in mild diverticulosis of the proximal sigmoid colon with no sign of diverticulitis. New distal ileal resection with anastomosis, with no sign of any stricture. New midline anterior pelvic wall incision with repair of previously seen fat containing periumbilical hernia. There is now weakening of the fascia in the periumbilical region with anterior protrusion of peritoneal contents, but without hernia formation. Stable moderate enlargement of the prostate. Please note that all CT scans at this facility use dose modulation, iterative reconstruction, and/or weight-based dosing when appropriate to reduce radiation dose to as low as reasonably achievable. Dictated by Dez Israel MD @ 03/11/2021 10:09:58 PM (Electronically Signed)
[2021-03-12] MEDS: Acetaminophen/Codeine 300-30 MG Tab PO PRN ×3 (06:07→22:10)
[2021-03-12] MEDS: Trolamine Salicylate/Aloe Vera 10% Crm 85 GM Tube TOP PRN ×4 (06:17→20:00)
[2021-03-12] MEDS: Rivaroxaban 10 MG Tab PO SCH (08:25)
[2021-03-12] MEDS: cloNIDine 0.1 MG Tab PO SCH ×2 (08:25→22:10)
[2021-03-12] MEDS: Lisinopril 20 MG Tab PO SCH (08:25)
[2021-03-12] MEDS: Metoprolol Succinate 50 MG Tab.ER PO SCH (08:26)
[2021-03-12] MEDS ORDERED: Glucagon,Human Recombinant 1 MG Vial IM PRN (09:33)
[2021-03-12] MEDS ORDERED: 50% Dextrose in Water 50 ML Syringe IVPUSH PRN (09:33)
[2021-03-12] MEDS: Insulin Lispro 100 Unit/ML 3 ML KwikPen SUBCUT SCH ×2 (13:01→18:03)
[2021-03-12] MEDS: REMDESIVIR 100 MG in Sodium Chloride 0.9% 100 ML IV SCH (13:05)
[2021-03-12] MEDS: Dexamethasone 4 MG/ML SDV IVPUSH SCH (13:09)
--- NOTE | 2021-03-12 20:06 | PCM.PN ---
- General Info Date of Service: 03/12/21 Admission Dx/Problem (Free Text): COVID-19 Subjective Update: Mr. Yo is feeling better today. He looks more active than he did yesterday. His CT did not show a reason for his unintentional weight loss and gynecomastia. It did show fatty liver disease. He is having no complaints today and we did discuss when he would likely be able to go home. I let him know that we would like him to complete the doses of remdesivir and if he is requiring less than 5 L of oxygen he can go with a condenser. I did state that he may not need supplementary oxygen when he goes home. - Review of Systems General: Reports: No Symptoms HEENT: Reports: No Symptoms Pulmonary: Reports: No Symptoms Cardiovascular: Reports: No Symptoms Gastrointestinal: Reports: No Symptoms Genitourinary: Reports: No Symptoms Musculoskeletal: Reports: No Symptoms Skin: Reports: No Symptoms Neurological: Reports: No Symptoms Psychiatric: Reports: No Symptoms - Patient Data Vitals - Most Recent: Last Vital Signs Temp 96.8 F L 03/12/21 19:00 Pulse 79 03/12/21 19:00 Resp 18 03/12/21 19:00 BP 106/82 03/12/21 19:00 Pulse Ox 95 03/12/21 19:00 Weight - Most Recent: 216 lb I&O - Last 24 Hours: Intake & Output 03/12/21 03/12/21 03/12/21 06:59 14:59 22:59 Intake Total 340 1000 Balance 340 1000 Lab Results Last 24 Hours: Laboratory Results - last 24 hr 03/12/21 03/12/21 03/12/21 Range/Units 04:20 04:20 12:55 WBC 4.4 L (4.5-11.0) K/uL RBC 5.08 (4.30-5.90) M/uL Hgb 15.2 H (12.0-15.0) g/dL Hct 47.6 (40.0-54.0) % MCV 94 (80-98) fL MCH 30 (27-31) pg MCHC 32 (32-36) % Plt Count 208 (150-400) K/uL Sodium 140 (140-148) mmol/L Potassium 4.7 (3.6-5.2) mmol/L Chloride 101 (100-108) mmol/L Carbon Dioxide 25 (21-32) mmol/L Anion Gap 14.3 H (5.0-14.0) mmol/L BUN 57 H (7-18) mg/dL Creatinine 1.2 (0.8-1.3) mg/dL Est Cr Clr Drug Dosing 61.37 mL/min Estimated GFR (MDRD) > 60 (>60) Glucose 253 H (74-106) mg/dL POC Glucose 390 H (74-106) mg/dL Calcium 9.6 (8.5-10.1) mg/dL Total Bilirubin 0.6 (0.2-1.0) mg/dL Direct Bilirubin 0.15 (0.0-0.2) mg/dL Indirect Bilirubin 0.45 AST 20 (15-37) U/L ALT 40 (12-78) U/L Alkaline Phosphatase 62 (46-116) U/L Total Protein 6.6 (6.4-8.2) g/dL Albumin 3.0 L (3.4-5.0) g/dL Globulin 3.6 H (2.3-3.5) g/dL Albumin/Globulin Ratio 0.8 L (1.2-2.2) 03/12/21 Range/Units 17:44 WBC (4.5-11.0) K/uL RBC (4.30-5.90) M/uL Hgb (12.0-15.0) g/dL Hct (40.0-54.0) % MCV (80-98) fL MCH (27-31) pg MCHC (32-36) % Plt Count (150-400) K/uL Sodium (140-148) mmol/L Potassium (3.6-5.2) mmol/L Chloride (100-108) mmol/L Carbon Dioxide (21-32) mmol/L Anion Gap (5.0-14.0) mmol/L BUN (7-18) mg/dL Creatinine (0.8-1.3) mg/dL Est Cr Clr Drug Dosing mL/min Estimated GFR (MDRD) (>60) Glucose (74-106) mg/dL POC Glucose 287 H (74-106) mg/dL Calcium (8.5-10.1) mg/dL Total Bilirubin (0.2-1.0) mg/dL Direct Bilirubin (0.0-0.2) mg/dL Indirect Bilirubin AST (15-37) U/L ALT (12-78) U/L Alkaline Phosphatase (46-116) U/L Total Protein (6.4-8.2) g/dL Albumin (3.4-5.0) g/dL Globulin (2.3-3.5) g/dL Albumin/Globulin Ratio (1.2-2.2) Med Orders - Current: Current Medications Acetaminophen (Acetaminophen 325 Mg Tab) 650 mg PO Q4H PRN PRN Reason: Fever Greater Than 101 Last Admin: 03/10/21 13:34 Dose: 650 mg Documented by: Acetaminophen/Codeine Phosphate (Acetaminophen/Codeine 300-30 Mg Tab) 1 tab PO Q4H PRN PRN Reason: Pain Last Admin: 03/12/21 12:40 Dose: 1 tab Documented by: Clonidine HCl (Clonidine 0.1 Mg Tab) 0.1 mg PO BID [facility] Last Admin: 03/12/21 08:25 Dose: 0.1 mg Documented by: Dexamethasone (Dexamethasone 4 Mg/Ml Sdv) 6 mg IVPUSH Q24H [facility] Stop: 03/20/21 14:01 Last Admin: 03/12/21 13:09 Dose: 6 mg Documented by: Dextrose/Water (50% Dextrose In Water 50 Ml Syringe) 50 ml IVPUSH ASDIRECTED PRN PRN Reason: Hypoglycemia Glucagon (Glucagon,Human Recombinant 1 Mg Vial) 1 mg IM ASDIRECTED PRN PRN Reason: Hypoglycemia Remdesivir 100 mg/ Sodium (Chloride) 100 mls @ 100 mls/hr IV Q24H [facility] Stop: 03/14/21 14:59 Last Admin: 03/12/21 13:05 Dose: 100 mls/hr Documented by: Insulin Human Lispro (Insulin Lispro 100 Unit/Ml 3 Ml Kwikpen) 0 unit SUBCUT TIDMEALS [facility]; Protocol Last Admin: 03/12/21 18:03 Dose: 3 units Documented by: Lisinopril (Lisinopril 20 Mg Tab) 40 mg PO DAILY [facility] Last Admin: 03/12/21 08:25 Dose: 40 mg Documented by: Metoprolol Succinate (Metoprolol Succinate 50 Mg Tab.Er) 100 mg PO DAILY [facility] Last Admin: 03/12/21 08:26 Dose: 100 mg Documented by: Rivaroxaban (Rivaroxaban 10 Mg Tab) 20 mg PO DAILY [facility] Last Admin: 03/12/21 08:25 Dose: 20 mg Documented by: Temazepam (Temazepam 15 Mg Cap) 30 mg PO BEDTIME [facility] Last Admin: 03/11/21 21:52 Dose: 30 mg Documented by: Trolamine Salicylate (Trolamine Salicylate/Aloe Vera 10% Crm 85 Gm Tube) 0 gm TOP Q1H PRN PRN Reason: Pain/Fever Last Admin: 03/12/21 20:00 Dose: 1 applic Documented by: Discontinued Medications Dexamethasone (Dexamethasone 4 Mg/Ml Sdv) 6 mg IVPUSH DAILY [facility] Stop: 03/19/21 09:01 Last Admin: 03/10/21 13:32 Dose: 6 mg Documented by: Enoxaparin Sodium (Enoxaparin 40 Mg/0.4 Ml Syringe) 40 mg SUBCUT DAILY [facility] Remdesivir 200 mg/ Sodium (Chloride) 250 mls @ 250 mls/hr IV ONETIME ONE Stop: 03/10/21 14:59 Last Admin: 03/10/21 13:36 Dose: 250 mls/hr Documented by: Sodium Chloride (Normal Saline) 80 mls @ 3 mls/sec IV ASDIRECTED [facility] Last Admin: 03/11/21 21:20 Dose: 3 mls/sec Documented by: Iopamidol (Iopamidol 612 Mg/Ml 150 Ml Bottle) 150 ml IV . DIRECTED [facility] Last Admin: 03/11/21 21:20 Dose: 150 ml Documented by: - Exam Quality Assessment: Supplemental Oxygen General: Alert, Oriented HEENT: Pupils Equal, EOMI, Mucous Membr. Moist/Nikolai Neck: Supple Lungs: Clear to Auscultation, Normal Respiratory Effort Cardiovascular: Regular Rate, Regular Rhythm GI/Abdominal Exam: Normal Bowel Sounds, Soft, Non-Tender, No Organomegaly, No Distention, No Abnormal Bruit, No Mass Back Exam: Normal Inspection Extremities: Normal Inspection, Non-Tender, No Pedal Edema Skin: Warm, Dry, Intact Neurological: No New Focal Deficit Psy/Mental Status: Alert, Normal Affect, Normal Mood - Patient Data Lab Results Last 24 hrs: Laboratory Results - last 24 hr 03/12/21 03/12/21 03/12/21 Range/Units 04:20 04:20 12:55 WBC 4.4 L (4.5-11.0) K/uL RBC 5.08 (4.30-5.90) M/uL Hgb 15.2 H (12.0-15.0) g/dL Hct 47.6 (40.0-54.0) % MCV 94 (80-98) fL MCH 30 (27-31) pg MCHC 32 (32-36) % Plt Count 208 (150-400) K/uL Sodium 140 (140-148) mmol/L Potassium 4.7 (3.6-5.2) mmol/L Chloride 101 (100-108) mmol/L Carbon Dioxide 25 (21-32) mmol/L Anion Gap 14.3 H (5.0-14.0) mmol/L BUN 57 H (7-18) mg/dL Creatinine 1.2 (0.8-1.3) mg/dL Est Cr Clr Drug Dosing 61.37 mL/min Estimated GFR (MDRD) > 60 (>60) Glucose 253 H (74-106) mg/dL POC Glucose 390 H (74-106) mg/dL Calcium 9.6 (8.5-10.1) mg/dL Total Bilirubin 0.6 (0.2-1.0) mg/dL Direct Bilirubin 0.15 (0.0-0.2) mg/dL Indirect Bilirubin 0.45 AST 20 (15-37) U/L ALT 40 (12-78) U/L Alkaline Phosphatase 62 (46-116) U/L Total Protein 6.6 (6.4-8.2) g/dL Albumin 3.0 L (3.4-5.0) g/dL Globulin 3.6 H (2.3-3.5) g/dL Albumin/Globulin Ratio 0.8 L (1.2-2.2) 03/12/21 Range/Units 17:44 WBC (4.5-11.0) K/uL RBC (4.30-5.90) M/uL Hgb (12.0-15.0) g/dL Hct (40.0-54.0) % MCV (80-98) fL MCH (27-31) pg MCHC (32-36) % Plt Count (150-400) K/uL Sodium (140-148) mmol/L Potassium (3.6-5.2) mmol/L Chloride (100-108) mmol/L Carbon Dioxide (21-32) mmol/L Anion Gap (5.0-14.0) mmol/L BUN (7-18) mg/dL Creatinine (0.8-1.3) mg/dL Est Cr Clr Drug Dosing mL/min Estimated GFR (MDRD) (>60) Glucose (74-106) mg/dL POC Glucose 287 H (74-106) mg/dL Calcium (8.5-10.1) mg/dL Total Bilirubin (0.2-1.0) mg/dL Direct Bilirubin (0.0-0.2) mg/dL Indirect Bilirubin AST (15-37) U/L ALT (12-78) U/L Alkaline Phosphatase (46-116) U/L Total Protein (6.4-8.2) g/dL Albumin (3.4-5.0) g/dL Globulin (2.3-3.5) g/dL Albumin/Globulin Ratio (1.2-2.2) Result Diagrams: 03/12/21 04:20 03/12/21 04:20 Sepsis Event Note - Evaluation Sepsis Screening Result: No Definite Risk - Focused Exam Vital Signs: Vital Signs Temp Pulse Pulse Resp BP BP Pulse Ox 03/12/21 19:00 96.8 F L 79 18 106/82 95 03/12/21 14:20 97 03/12/21 12:01 92 L 03/12/21 11:50 95.3 F L 75 18 84/55 L 93 L 03/12/21 10:30 94 L 03/12/21 09:30 96 03/12/21 08:39 95.4 F L 89 18 115/83 99 03/12/21 08:26 94 113/83 03/12/21 08:25 113/83 - Problem List & Annotations (1) COVID-19 SNOMED Code(s): 220653000 Code(s): U07.1 - COVID-19 Status: Acute Current Visit: Yes (2) AA (aortic aneurysm) SNOMED Code(s): 44790450 Code(s): I71.9 - AORTIC ANEURYSM OF UNSPECIFIED SITE, WITHOUT RUPTURE Status: Chronic Current Visit: No (3) Essential hypertension SNOMED Code(s): 48316917 Code(s): I10 - ESSENTIAL (PRIMARY) HYPERTENSION Status: Chronic Current Visit: No (4) History of squamous cell carcinoma SNOMED Code(s): 60215554567933 Code(s): Z85.89 - PERSONAL HISTORY OF MALIGNANT NEOPLASM OF ORGANS AND SYSTEMS Status: Chronic Current Visit: No - Problem List Review Problem List Initiated/Reviewed/Updated: Yes - My Orders Last 24 Hours: My Active Orders 03/12/21 09:32 POC Glucose [Blood Glucose Check, Bedside] [RC] WITHMEALSANDBED 03/12/21 09:33 Dextrose 50% in Water 50 ml IVPUSH ASDIRECTED PRN Glucagon,Human Recombinant [GlucaGen] 1 mg IM ASDIRECTED PRN 03/12/21 12:00 Insulin Lispro [HumaLOG] See Protocol SUBCUT TIDMEALS 03/13/21 07:00 HEPATIC FUNCTION PANEL,HFP [CHEM] DAILY 03/14/21 07:00 HEPATIC FUNCTION PANEL,HFP [CHEM] DAILY 03/15/21 07:00 HEPATIC FUNCTION PANEL,HFP [CHEM] DAILY 03/16/21 07:00 HEPATIC FUNCTION PANEL,HFP [CHEM] DAILY 03/17/21 07:00 HEPATIC FUNCTION PANEL,HFP [CHEM] DAILY - Plan Plan:: COVID-19 pneumonia requiring supplemental oxygen -Remdesivir 200 mg loading dose given, will be given additional 100 mg doses over 4 days -On rivaroxaban so will not be using enoxaparin -Decadron 6 mg daily for 10 days -Will monitor for hypoxia and supplement for SPO2 less than 90% Unintentional weight loss -CT abdomen did not show a reason for this. I did tell him that he would need to work with his primary care provider if this issue continue to figure out a possible reason why. Gynecomastia -CT abdomen showed fatty liver disease which is likely the cause Hyperglycemia likely diabetes mellitus type 2 -Ordering an A1c -He states that he has been told in the past that he has prediabetes -We are getting blood sugars over 200 indicating he may have diabetes however he is on Decadron -Lispro low-dose sliding scale with meals -Checking blood glucose 3 times daily before meals and at bedtime Abdominal aortic aneurysm -He states that he may need surgery for this -Will monitor for any cardiac compromise Chronic pain of the neck -Takes Tylenol with codeine for his chronically at home -Will treat with Tylenol 3 as needed Essential hypertension-currently blood pressure is controlled -At home he usually takes lisinopril 20 mg, metoprolol 100 mg ER, and clonidine 0.1 mg however he has not needed these -We will continue to monitor his blood pressure and restart home medications as needed Insomnia -Continue home dose of temazepam as needed for sleep 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
[2021-03-12] MEDS: Temazepam 15 MG Cap PO SCH (22:10)
[2021-03-12] MEDS: Insulin Glargine,Human Rec. Analog 100 Units/ML 3 ML Pen SUBCUT SCH (22:14)
[2021-03-13] MEDS: Lisinopril 20 MG Tab PO SCH (08:05)
[2021-03-13] MEDS: cloNIDine 0.1 MG Tab PO SCH ×2 (08:05→20:44)
[2021-03-13] MEDS: Metoprolol Succinate 50 MG Tab.ER PO SCH (08:05)
[2021-03-13] MEDS: Rivaroxaban 10 MG Tab PO SCH (08:08)
[2021-03-13] MEDS: Insulin Lispro 100 Unit/ML 3 ML KwikPen SUBCUT SCH ×3 (08:09→17:29)
[2021-03-13] MEDS: Trolamine Salicylate/Aloe Vera 10% Crm 85 GM Tube TOP PRN ×2 (08:12→20:33)
[2021-03-13 09:19] LABS: HEMOGLOBIN A1C 7.2 % (4.5-6.2)
--- NOTE | 2021-03-13 12:56 | PCM.PN ---
- General Info Date of Service: 03/13/21 Subjective Update: There were no acute events overnight. Oxygenation has been stable at around 8 L of supplemental oxygen. He reports a slight improvement in his energy and appet ite. He is able to walk short distances around the room. He feels less dyspneic with activity today than yesterday. Oxygen saturations dropped some but not quite as far as yesterday when he is active. Slight nonproductive cough. No nausea or abdominal pain. Feeling a little better today. Functional Status: Reports: Pain Controlled, Tolerating Diet - Review of Systems General: Reports: Weakness Pulmonary: Reports: Shortness of Breath - Patient Data Vitals - Most Recent: Last Vital Signs Temp 36.1 C 03/13/21 08:00 Pulse 76 03/13/21 08:00 Resp 20 03/13/21 08:00 BP 115/80 03/13/21 08:05 Pulse Ox 93 L 03/13/21 12:27 Weight - Most Recent: 97.976 kg I&O - Last 24 Hours: Intake & Output 03/12/21 03/13/21 03/13/21 22:59 06:59 14:59 Intake Total 1000 Balance 1000 Lab Results Last 24 Hours: Laboratory Results - last 24 hr 03/12/21 03/12/21 03/12/21 Range/Units 12:55 17:44 21:56 WBC (4.5-11.0) K/uL RBC (4.30-5.90) M/uL Hgb (12.0-15.0) g/dL Hct (40.0-54.0) % MCV (80-98) fL MCH (27-31) pg MCHC (32-36) % Plt Count (150-400) K/uL Sodium (140-148) mmol/L Potassium (3.6-5.2) mmol/L Chloride (100-108) mmol/L Carbon Dioxide (21-32) mmol/L Anion Gap (5.0-14.0) mmol/L BUN (7-18) mg/dL Creatinine (0.8-1.3) mg/dL Est Cr Clr Drug Dosing mL/min Estimated GFR (MDRD) (>60) Glucose (74-106) mg/dL POC Glucose 390 H 287 H 281 H (74-106) mg/dL Hemoglobin A1c (4.5-6.2) % Calcium (8.5-10.1) mg/dL Total Bilirubin (0.2-1.0) mg/dL Direct Bilirubin (0.0-0.2) mg/dL Indirect Bilirubin AST (15-37) U/L ALT (12-78) U/L Alkaline Phosphatase (46-116) U/L Total Protein (6.4-8.2) g/dL Albumin (3.4-5.0) g/dL Globulin (2.3-3.5) g/dL Albumin/Globulin Ratio (1.2-2.2) 03/13/21 03/13/21 03/13/21 Range/Units 05:20 05:20 05:20 WBC 3.8 L (4.5-11.0) K/uL RBC 4.52 (4.30-5.90) M/uL Hgb 13.6 (12.0-15.0) g/dL Hct 42.0 (40.0-54.0) % MCV 93 (80-98) fL MCH 30 (27-31) pg MCHC 32 (32-36) % Plt Count 224 (150-400) K/uL Sodium 137 L (140-148) mmol/L Potassium 5.4 H (3.6-5.2) mmol/L Chloride 102 (100-108) mmol/L Carbon Dioxide 27 (21-32) mmol/L Anion Gap 13.4 (5.0-14.0) mmol/L BUN 60 H (7-18) mg/dL Creatinine 1.1 (0.8-1.3) mg/dL Est Cr Clr Drug Dosing 66.95 mL/min Estimated GFR (MDRD) > 60 (>60) Glucose 232 H (74-106) mg/dL POC Glucose (74-106) mg/dL Hemoglobin A1c 7.2 H (4.5-6.2) % Calcium 8.9 (8.5-10.1) mg/dL Total Bilirubin 0.7 (0.2-1.0) mg/dL Direct Bilirubin 0.16 (0.0-0.2) mg/dL Indirect Bilirubin 0.54 AST 17 (15-37) U/L ALT 30 (12-78) U/L Alkaline Phosphatase 50 (46-116) U/L Total Protein 5.6 L (6.4-8.2) g/dL Albumin 2.6 L (3.4-5.0) g/dL Globulin 3.0 (2.3-3.5) g/dL Albumin/Globulin Ratio 0.9 L (1.2-2.2) 03/13/21 03/13/21 Range/Units 07:51 11:40 WBC (4.5-11.0) K/uL RBC (4.30-5.90) M/uL Hgb (12.0-15.0) g/dL Hct (40.0-54.0) % MCV (80-98) fL MCH (27-31) pg MCHC (32-36) % Plt Count (150-400) K/uL Sodium (140-148) mmol/L Potassium (3.6-5.2) mmol/L Chloride (100-108) mmol/L Carbon Dioxide (21-32) mmol/L Anion Gap (5.0-14.0) mmol/L BUN (7-18) mg/dL Creatinine (0.8-1.3) mg/dL Est Cr Clr Drug Dosing mL/min Estimated GFR (MDRD) (>60) Glucose (74-106) mg/dL POC Glucose 209 H 210 H (74-106) mg/dL Hemoglobin A1c (4.5-6.2) % Calcium (8.5-10.1) mg/dL Total Bilirubin (0.2-1.0) mg/dL Direct Bilirubin (0.0-0.2) mg/dL Indirect Bilirubin AST (15-37) U/L ALT (12-78) U/L Alkaline Phosphatase (46-116) U/L Total Protein (6.4-8.2) g/dL Albumin (3.4-5.0) g/dL Globulin (2.3-3.5) g/dL Albumin/Globulin Ratio (1.2-2.2) Med Orders - Current: Current Medications Acetaminophen (Acetaminophen 325 Mg Tab) 650 mg PO Q4H PRN PRN Reason: Fever Greater Than 101 Last Admin: 03/10/21 13:34 Dose: 650 mg Documented by: Acetaminophen/Codeine Phosphate (Acetaminophen/Codeine 300-30 Mg Tab) 1 tab PO Q4H PRN PRN Reason: Pain Last Admin: 03/12/21 22:10 Dose: 1 tab Documented by: Clonidine HCl (Clonidine 0.1 Mg Tab) 0.1 mg PO BID [facility] Last Admin: 03/13/21 08:05 Dose: Not Given Documented by: Dexamethasone (Dexamethasone 4 Mg/Ml Sdv) 6 mg IVPUSH Q24H [facility] Stop: 03/20/21 14:01 Last Admin: 03/12/21 13:09 Dose: 6 mg Documented by: Dextrose/Water (50% Dextrose In Water 50 Ml Syringe) 50 ml IVPUSH ASDIRECTED PRN PRN Reason: Hypoglycemia Glucagon (Glucagon,Human Recombinant 1 Mg Vial) 1 mg IM ASDIRECTED PRN PRN Reason: Hypoglycemia Remdesivir 100 mg/ Sodium (Chloride) 100 mls @ 100 mls/hr IV Q24H [facility] Stop: 03/14/21 14:59 Last Admin: 03/12/21 13:05 Dose: 100 mls/hr Documented by: Insulin Glargine (Insulin Glargine,Human Rec. Analog 100 Units/Ml 3 Ml Pen) 10 units SUBCUT BEDTIME [facility] Last Admin: 03/12/21 22:14 Dose: 10 units Documented by: Insulin Human Lispro (Insulin Lispro 100 Unit/Ml 3 Ml Kwikpen) 0 unit SUBCUT TIDMEALS [facility]; Protocol Last Admin: 03/13/21 11:53 Dose: 2 units Documented by: Lisinopril (Lisinopril 20 Mg Tab) 40 mg PO DAILY [facility] Last Admin: 03/13/21 08:05 Dose: Not Given Documented by: Metoprolol Succinate (Metoprolol Succinate 50 Mg Tab.Er) 100 mg PO DAILY [facility] Last Admin: 03/13/21 08:05 Dose: Not Given Documented by: Rivaroxaban (Rivaroxaban 10 Mg Tab) 20 mg PO DAILY [facility] Last Admin: 03/13/21 08:08 Dose: 20 mg Documented by: Temazepam (Temazepam 15 Mg Cap) 30 mg PO BEDTIME [facility] Last Admin: 03/12/21 22:10 Dose: 30 mg Documented by: Trolamine Salicylate (Trolamine Salicylate/Aloe Vera 10% Crm 85 Gm Tube) 0 gm TOP Q1H PRN PRN Reason: Pain/Fever Last Admin: 03/13/21 08:12 Dose: 1 applic Documented by: Discontinued Medications Dexamethasone (Dexamethasone 4 Mg/Ml Sdv) 6 mg IVPUSH DAILY [facility] Stop: 03/19/21 09:01 Last Admin: 03/10/21 13:32 Dose: 6 mg Documented by: Enoxaparin Sodium (Enoxaparin 40 Mg/0.4 Ml Syringe) 40 mg SUBCUT DAILY [facility] Remdesivir 200 mg/ Sodium (Chloride) 250 mls @ 250 mls/hr IV ONETIME ONE Stop: 03/10/21 14:59 Last Admin: 03/10/21 13:36 Dose: 250 mls/hr Documented by: Sodium Chloride (Normal Saline) 80 mls @ 3 mls/sec IV ASDIRECTED [facility] Last Admin: 03/11/21 21:20 Dose: 3 mls/sec Documented by: Iopamidol (Iopamidol 612 Mg/Ml 150 Ml Bottle) 150 ml IV . DIRECTED [facility] Last Admin: 03/11/21 21:20 Dose: 150 ml Documented by: - Exam Quality Assessment: Supplemental Oxygen General: Alert, Oriented, Cooperative, No Acute Distress Lungs: Normal Respiratory Effort GI/Abdominal Exam: Soft, No Distention Extremities: No Pedal Edema Skin: Warm, Dry Psy/Mental Status: Alert, Normal Affect - Patient Data Lab Results Last 24 hrs: Laboratory Results - last 24 hr 03/12/21 03/12/21 03/12/21 Range/Units 12:55 17:44 21:56 WBC (4.5-11.0) K/uL RBC (4.30-5.90) M/uL Hgb (12.0-15.0) g/dL Hct (40.0-54.0) % MCV (80-98) fL MCH (27-31) pg MCHC (32-36) % Plt Count (150-400) K/uL Sodium (140-148) mmol/L Potassium (3.6-5.2) mmol/L Chloride (100-108) mmol/L Carbon Dioxide (21-32) mmol/L Anion Gap (5.0-14.0) mmol/L BUN (7-18) mg/dL Creatinine (0.8-1.3) mg/dL Est Cr Clr Drug Dosing mL/min Estimated GFR (MDRD) (>60) Glucose (74-106) mg/dL POC Glucose 390 H 287 H 281 H (74-106) mg/dL Hemoglobin A1c (4.5-6.2) % Calcium (8.5-10.1) mg/dL Total Bilirubin (0.2-1.0) mg/dL Direct Bilirubin (0.0-0.2) mg/dL Indirect Bilirubin AST (15-37) U/L ALT (12-78) U/L Alkaline Phosphatase (46-116) U/L Total Protein (6.4-8.2) g/dL Albumin (3.4-5.0) g/dL Globulin (2.3-3.5) g/dL Albumin/Globulin Ratio (1.2-2.2) 03/13/21 03/13/21 03/13/21 Range/Units 05:20 05:20 05:20 WBC 3.8 L (4.5-11.0) K/uL RBC 4.52 (4.30-5.90) M/uL Hgb 13.6 (12.0-15.0) g/dL Hct 42.0 (40.0-54.0) % MCV 93 (80-98) fL MCH 30 (27-31) pg MCHC 32 (32-36) % Plt Count 224 (150-400) K/uL Sodium 137 L (140-148) mmol/L Potassium 5.4 H (3.6-5.2) mmol/L Chloride 102 (100-108) mmol/L Carbon Dioxide 27 (21-32) mmol/L Anion Gap 13.4 (5.0-14.0) mmol/L BUN 60 H (7-18) mg/dL Creatinine 1.1 (0.8-1.3) mg/dL Est Cr Clr Drug Dosing 66.95 mL/min Estimated GFR (MDRD) > 60 (>60) Glucose 232 H (74-106) mg/dL POC Glucose (74-106) mg/dL Hemoglobin A1c 7.2 H (4.5-6.2) % Calcium 8.9 (8.5-10.1) mg/dL Total Bilirubin 0.7 (0.2-1.0) mg/dL Direct Bilirubin 0.16 (0.0-0.2) mg/dL Indirect Bilirubin 0.54 AST 17 (15-37) U/L ALT 30 (12-78) U/L Alkaline Phosphatase 50 (46-116) U/L Total Protein 5.6 L (6.4-8.2) g/dL Albumin 2.6 L (3.4-5.0) g/dL Globulin 3.0 (2.3-3.5) g/dL Albumin/Globulin Ratio 0.9 L (1.2-2.2) 03/13/21 03/13/21 Range/Units 07:51 11:40 WBC (4.5-11.0) K/uL RBC (4.30-5.90) M/uL Hgb (12.0-15.0) g/dL Hct (40.0-54.0) % MCV (80-98) fL MCH (27-31) pg MCHC (32-36) % Plt Count (150-400) K/uL Sodium (140-148) mmol/L Potassium (3.6-5.2) mmol/L Chloride (100-108) mmol/L Carbon Dioxide (21-32) mmol/L Anion Gap (5.0-14.0) mmol/L BUN (7-18) mg/dL Creatinine (0.8-1.3) mg/dL Est Cr Clr Drug Dosing mL/min Estimated GFR (MDRD) (>60) Glucose (74-106) mg/dL POC Glucose 209 H 210 H (74-106) mg/dL Hemoglobin A1c (4.5-6.2) % Calcium (8.5-10.1) mg/dL Total Bilirubin (0.2-1.0) mg/dL Direct Bilirubin (0.0-0.2) mg/dL Indirect Bilirubin AST (15-37) U/L ALT (12-78) U/L Alkaline Phosphatase (46-116) U/L Total Protein (6.4-8.2) g/dL Albumin (3.4-5.0) g/dL Globulin (2.3-3.5) g/dL Albumin/Globulin Ratio (1.2-2.2) Result Diagrams: 03/13/21 05:20 03/13/21 05:20 Sepsis Event Note - Evaluation Sepsis Screening Result: No Definite Risk - Focused Exam Vital Signs: Vital Signs Temp Pulse Resp BP BP Pulse Ox 03/13/21 12:27 93 L 03/13/21 08:05 115/80 03/13/21 08:00 36.1 C 76 20 115/80 91 L 03/13/21 07:37 94 L 03/13/21 04:00 35.1 C L 77 18 113/76 96 03/13/21 01:18 92 L - Problem List Review Problem List Initiated/Reviewed/Updated: Yes - My Orders Last 24 Hours: My Active Orders 03/13/21 10:08 Discontinue Telemetry Monitoring [Cardiac Monitoring Discontinue] [RC] Click to Edit 03/14/21 05:00 COMPREHENSIVE METABOLIC PN,CMP [CHEM] Timed CRP [C-REACTIVE PROTEIN] [CHEM] Timed D-DIMER QUANTITATIVE [COAG] Timed - Plan Plan:: ASSESSMENT AND PLAN - COVID-19 pneumonia-complicated by acute respiratory failure with hypoxia. Still requiring a fair amount of high flow nasal cannula support but otherwise is stable and symptomatically is feeling a little better. -Remdesivir x5 days -Rivaroxaban for anticoagulation -Decadron 6 mg daily for 10 days (day 4) -Will monitor for hypoxia and supplement for SPO2 less than 90% -Prone ventilation as able Unintentional weight loss-no cause identified so far. -Outpatient follow-up Gynecomastia-CT abdomen showed fatty liver disease which is likely the cause Diabetes mellitus type 2-significant hyperglycemia with steroids. Hemoglobin A1c greater than 7. I do not anticipate he will need insulin at the time of discharge but will while he is on steroids. -Continue current dose of long-acting insulin and sliding scale insulin -Titrate medications as needed -Consider Metformin in a day or 2 Abdominal aortic aneurysm -Outpatient follow-up Chronic pain of the neck -Takes Tylenol with codeine for his chronically at home -Will treat with Tylenol 3 as needed Essential hypertension-currently blood pressure is controlled -At home he usually takes lisinopril 20 mg, metoprolol 100 mg ER, and clonidine 0.1 mg however he has not needed these -We will continue to monitor his blood pressure and restart home medications as needed Insomnia -Continue home dose of temazepam as needed for sleep 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
[2021-03-13] MEDS: Dexamethasone 4 MG/ML SDV IVPUSH SCH (13:48)
[2021-03-13] MEDS: REMDESIVIR 100 MG in Sodium Chloride 0.9% 100 ML IV SCH (13:48)
--- NOTE | 2021-03-13 17:49 | PCM.EKG ---
#1 Interpretation EKG Date: 03/11/21 Time: 08:47 Rhythm: NSR Rate (Beats/Min): 83 Erskine: Normal P-Wave: Present QRS: Normal ST-T: Normal QT: Normal NH/PQ Interval: normal Comparison: No Change (Compared to 04/24/2018)
[2021-03-13] MEDS: Acetaminophen/Codeine 300-30 MG Tab PO PRN (20:31)
[2021-03-13] MEDS: Temazepam 15 MG Cap PO SCH (20:42)
[2021-03-13] MEDS: Insulin Glargine,Human Rec. Analog 100 Units/ML 3 ML Pen SUBCUT SCH (21:30)
[2021-03-14] MEDS: cloNIDine 0.1 MG Tab PO SCH ×2 (09:12→20:35)
[2021-03-14] MEDS: Metoprolol Succinate 50 MG Tab.ER PO SCH (09:14)
[2021-03-14] MEDS: Lisinopril 20 MG Tab PO SCH (09:14)
[2021-03-14] MEDS: Rivaroxaban 10 MG Tab PO SCH (09:16)
[2021-03-14] MEDS: Insulin Lispro 100 Unit/ML 3 ML KwikPen SUBCUT SCH ×3 (09:18→17:05)
[2021-03-14] MEDS: Trolamine Salicylate/Aloe Vera 10% Crm 85 GM Tube TOP PRN ×2 (09:22→20:39)
--- NOTE | 2021-03-14 13:39 | PCM.PN ---
- General Info Date of Service: 03/14/21 Subjective Update: There were no acute events overnight. Patient is feeling better today. He has been able to be up and around in the room as much as his supplemental oxygen cord will let him. Minimal dyspnea with exertion. Minimal cough. Appetite has been good. We were able to turn him down to 6 L of supplemental oxygen. Feeling better and hoping to go home soon. We did discuss what would need happen for him to get home with the biggest tomas at this time being trying to get him down to 4 L of oxygen or less. Blood sugars remain moderately elevated. Functional Status: Reports: Pain Controlled, Tolerating Diet - Review of Systems General: Reports: Weakness Pulmonary: Denies: Shortness of Breath - Patient Data Vitals - Most Recent: Last Vital Signs Temp 35.3 C L 03/14/21 11:00 Pulse 115 H 03/14/21 11:00 Resp 18 03/14/21 11:00 BP 129/90 03/14/21 11:00 Pulse Ox 91 L 03/14/21 13:02 Weight - Most Recent: 97.976 kg I&O - Last 24 Hours: Intake & Output 03/13/21 03/14/21 03/14/21 22:59 06:59 14:59 Intake Total 720 200 Balance 720 200 Lab Results Last 24 Hours: Laboratory Results - last 24 hr 03/13/21 03/13/21 03/14/21 Range/Units 16:23 21:01 05:45 D-Dimer, Quantitative 451.16 (0.0-500.0) ng/mL Sodium (140-148) mmol/L Potassium (3.6-5.2) mmol/L Chloride (100-108) mmol/L Carbon Dioxide (21-32) mmol/L Anion Gap (5.0-14.0) mmol/L BUN (7-18) mg/dL Creatinine (0.8-1.3) mg/dL Est Cr Clr Drug Dosing mL/min Estimated GFR (MDRD) (>60) Glucose (74-106) mg/dL POC Glucose 248 H 334 H (74-106) mg/dL Calcium (8.5-10.1) mg/dL Total Bilirubin (0.2-1.0) mg/dL AST (15-37) U/L ALT (12-78) U/L Alkaline Phosphatase (46-116) U/L C-Reactive Protein (0.0-0.3) mg/dL Total Protein (6.4-8.2) g/dL Albumin (3.4-5.0) g/dL Globulin (2.3-3.5) g/dL Albumin/Globulin Ratio (1.2-2.2) 03/14/21 03/14/21 03/14/21 Range/Units 05:45 07:31 11:22 D-Dimer, Quantitative (0.0-500.0) ng/mL Sodium 136 L (140-148) mmol/L Potassium 5.2 (3.6-5.2) mmol/L Chloride 99 L (100-108) mmol/L Carbon Dioxide 24 (21-32) mmol/L Anion Gap 18.2 H (5.0-14.0) mmol/L BUN 49 H (7-18) mg/dL Creatinine 1.3 (0.8-1.3) mg/dL Est Cr Clr Drug Dosing 56.46 mL/min Estimated GFR (MDRD) 55 L (>60) Glucose 295 H (74-106) mg/dL POC Glucose 282 H 327 H (74-106) mg/dL Calcium 9.1 (8.5-10.1) mg/dL Total Bilirubin 1.0 (0.2-1.0) mg/dL AST 22 (15-37) U/L ALT 35 (12-78) U/L Alkaline Phosphatase 57 (46-116) U/L C-Reactive Protein 2.37 H (0.0-0.3) mg/dL Total Protein 6.3 L (6.4-8.2) g/dL Albumin 3.0 L (3.4-5.0) g/dL Globulin 3.3 (2.3-3.5) g/dL Albumin/Globulin Ratio 0.9 L (1.2-2.2) Med Orders - Current: Current Medications Acetaminophen (Acetaminophen 325 Mg Tab) 650 mg PO Q4H PRN PRN Reason: Fever Greater Than 101 Last Admin: 03/10/21 13:34 Dose: 650 mg Documented by: Acetaminophen/Codeine Phosphate (Acetaminophen/Codeine 300-30 Mg Tab) 1 tab PO Q4H PRN PRN Reason: Pain Last Admin: 03/13/21 20:31 Dose: 1 tab Documented by: Clonidine HCl (Clonidine 0.1 Mg Tab) 0.1 mg PO BID COUNTS INCLUDE 234 BEDS AT THE [facility] Last Admin: 03/14/21 09:12 Dose: Not Given Documented by: Dexamethasone (Dexamethasone 4 Mg/Ml Sdv) 6 mg IVPUSH Q24H COUNTS INCLUDE 234 BEDS AT THE [facility] Stop: 03/20/21 14:01 Last Admin: 03/13/21 13:48 Dose: 6 mg Documented by: Dextrose/Water (50% Dextrose In Water 50 Ml Syringe) 50 ml IVPUSH ASDIRECTED PRN PRN Reason: Hypoglycemia Glucagon (Glucagon,Human Recombinant 1 Mg Vial) 1 mg IM ASDIRECTED PRN PRN Reason: Hypoglycemia Remdesivir 100 mg/ Sodium (Chloride) 100 mls @ 100 mls/hr IV Q24H COUNTS INCLUDE 234 BEDS AT THE [facility] Stop: 03/14/21 14:59 Last Admin: 03/13/21 13:48 Dose: 100 mls/hr Documented by: Insulin Glargine (Insulin Glargine,Human Rec. Analog 100 Units/Ml 3 Ml Pen) 10 units SUBCUT BEDTIME COUNTS INCLUDE 234 BEDS AT THE [facility] Last Admin: 03/13/21 21:30 Dose: 10 units Documented by: Insulin Human Lispro (Insulin Lispro 100 Unit/Ml 3 Ml Kwikpen) 0 unit SUBCUT TIDMEALS COUNTS INCLUDE 234 BEDS AT THE [facility]; Protocol Last Admin: 03/14/21 12:23 Dose: 4 units Documented by: Lisinopril (Lisinopril 20 Mg Tab) 40 mg PO DAILY COUNTS INCLUDE 234 BEDS AT THE [facility] Last Admin: 03/14/21 09:14 Dose: Not Given Documented by: Metoprolol Succinate (Metoprolol Succinate 50 Mg Tab.Er) 100 mg PO DAILY COUNTS INCLUDE 234 BEDS AT THE [facility] Last Admin: 03/14/21 09:14 Dose: Not Given Documented by: Rivaroxaban (Rivaroxaban 10 Mg Tab) 20 mg PO DAILY COUNTS INCLUDE 234 BEDS AT THE [facility] Last Admin: 03/14/21 09:16 Dose: 20 mg Documented by: Temazepam (Temazepam 15 Mg Cap) 30 mg PO BEDTIME COUNTS INCLUDE 234 BEDS AT THE [facility] Last Admin: 03/13/21 20:42 Dose: 30 mg Documented by: Trolamine Salicylate (Trolamine Salicylate/Aloe Vera 10% Crm 85 Gm Tube) 0 gm TOP Q1H PRN PRN Reason: Pain/Fever Last Admin: 03/14/21 09:22 Dose: 1 applic Documented by: Discontinued Medications Dexamethasone (Dexamethasone 4 Mg/Ml Sdv) 6 mg IVPUSH DAILY COUNTS INCLUDE 234 BEDS AT THE [facility] Stop: 03/19/21 09:01 Last Admin: 03/10/21 13:32 Dose: 6 mg Documented by: Enoxaparin Sodium (Enoxaparin 40 Mg/0.4 Ml Syringe) 40 mg SUBCUT DAILY COUNTS INCLUDE 234 BEDS AT THE [facility] Remdesivir 200 mg/ Sodium (Chloride) 250 mls @ 250 mls/hr IV ONETIME ONE Stop: 03/10/21 14:59 Last Admin: 03/10/21 13:36 Dose: 250 mls/hr Documented by: Sodium Chloride (Normal Saline) 80 mls @ 3 mls/sec IV ASDIRECTED COUNTS INCLUDE 234 BEDS AT THE [facility] Last Admin: 03/11/21 21:20 Dose: 3 mls/sec Documented by: Iopamidol (Iopamidol 612 Mg/Ml 150 Ml Bottle) 150 ml IV . DIRECTED COUNTS INCLUDE 234 BEDS AT THE [facility] Last Admin: 03/11/21 21:20 Dose: 150 ml Documented by: - Exam Quality Assessment: Supplemental Oxygen General: Alert, Oriented, Cooperative, No Acute Distress Lungs: Normal Respiratory Effort. No: Wheezing GI/Abdominal Exam: Soft, No Distention Extremities: No Pedal Edema. No: Increased Warmth Psy/Mental Status: Alert, Normal Affect - Patient Data Lab Results Last 24 hrs: Laboratory Results - last 24 hr 03/13/21 03/13/21 03/14/21 Range/Units 16:23 21:01 05:45 D-Dimer, Quantitative 451.16 (0.0-500.0) ng/mL Sodium (140-148) mmol/L Potassium (3.6-5.2) mmol/L Chloride (100-108) mmol/L Carbon Dioxide (21-32) mmol/L Anion Gap (5.0-14.0) mmol/L BUN (7-18) mg/dL Creatinine (0.8-1.3) mg/dL Est Cr Clr Drug Dosing mL/min Estimated GFR (MDRD) (>60) Glucose (74-106) mg/dL POC Glucose 248 H 334 H (74-106) mg/dL Calcium (8.5-10.1) mg/dL Total Bilirubin (0.2-1.0) mg/dL AST (15-37) U/L ALT (12-78) U/L Alkaline Phosphatase (46-116) U/L C-Reactive Protein (0.0-0.3) mg/dL Total Protein (6.4-8.2) g/dL Albumin (3.4-5.0) g/dL Globulin (2.3-3.5) g/dL Albumin/Globulin Ratio (1.2-2.2) 03/14/21 03/14/21 03/14/21 Range/Units 05:45 07:31 11:22 D-Dimer, Quantitative (0.0-500.0) ng/mL Sodium 136 L (140-148) mmol/L Potassium 5.2 (3.6-5.2) mmol/L Chloride 99 L (100-108) mmol/L Carbon Dioxide 24 (21-32) mmol/L Anion Gap 18.2 H (5.0-14.0) mmol/L BUN 49 H (7-18) mg/dL Creatinine 1.3 (0.8-1.3) mg/dL Est Cr Clr Drug Dosing 56.46 mL/min Estimated GFR (MDRD) 55 L (>60) Glucose 295 H (74-106) mg/dL POC Glucose 282 H 327 H (74-106) mg/dL Calcium 9.1 (8.5-10.1) mg/dL Total Bilirubin 1.0 (0.2-1.0) mg/dL AST 22 (15-37) U/L ALT 35 (12-78) U/L Alkaline Phosphatase 57 (46-116) U/L C-Reactive Protein 2.37 H (0.0-0.3) mg/dL Total Protein 6.3 L (6.4-8.2) g/dL Albumin 3.0 L (3.4-5.0) g/dL Globulin 3.3 (2.3-3.5) g/dL Albumin/Globulin Ratio 0.9 L (1.2-2.2) Result Diagrams: 03/13/21 05:20 03/14/21 05:45 Sepsis Event Note - Evaluation Sepsis Screening Result: No Definite Risk - Focused Exam Vital Signs: Vital Signs Temp Pulse Resp BP BP Pulse Ox 03/14/21 13:02 91 L 03/14/21 11:00 35.3 C L 115 H 18 129/90 92 L 03/14/21 09:14 114/88 03/14/21 09:12 114/88 03/14/21 07:28 35.6 C L 55 L 18 114/88 93 L 03/14/21 07:24 93 L 03/14/21 03:00 36.5 C 98 16 118/74 97 - Problem List Review Problem List Initiated/Reviewed/Updated: Yes - Plan Plan:: ASSESSMENT AND PLAN - COVID-19 pneumonia-complicated by acute respiratory failure with hypoxia. Oxygenation steadily improving and is requiring less supplemental oxygen each day. -Remdesivir x5 days -Rivaroxaban for anticoagulation -Decadron 6 mg daily for 10 days (day 5) -Will monitor for hypoxia and supplement for SPO2 less than 90% -Prone ventilation as able Unintentional weight loss-no evidence for malignancy. -Outpatient follow-up Gynecomastia-CT abdomen showed fatty liver disease which is likely the cause Diabetes mellitus type 2-significant hyperglycemia with steroids. Hemoglobin A1c greater than 7. I do not anticipate he will need insulin at the time of discharge but will while he is on steroids. 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 He will likely need home oxygen. Dago Aragon MD
[2021-03-14] MEDS: Dexamethasone 4 MG/ML SDV IVPUSH SCH (14:52)
[2021-03-14] MEDS: REMDESIVIR 100 MG in Sodium Chloride 0.9% 100 ML IV SCH (14:52)
[2021-03-14] MEDS: Acetaminophen/Codeine 300-30 MG Tab PO PRN (20:34)
[2021-03-14] MEDS: Temazepam 15 MG Cap PO SCH (20:35)
[2021-03-14] MEDS: Insulin Glargine,Human Rec. Analog 100 Units/ML 3 ML Pen SUBCUT SCH (20:36)
[2021-03-15 08:02] VITALS: BP 90/73; PULSE 88
[2021-03-15] MEDS: cloNIDine 0.1 MG Tab PO SCH (08:11)
[2021-03-15] MEDS: Insulin Lispro 100 Unit/ML 3 ML KwikPen SUBCUT SCH ×2 (08:11→13:01)
[2021-03-15] MEDS: Metoprolol Succinate 50 MG Tab.ER PO SCH (08:12)
[2021-03-15] MEDS: Lisinopril 20 MG Tab PO SCH (08:12)
[2021-03-15] MEDS: Rivaroxaban 10 MG Tab PO SCH (09:09)
--- NOTE | 2021-03-15 10:18 | PCM.DCSUM1 ---
Discharge Summary - Hospital Course Brief History: 65-year-old male with history of previous deep vein thrombosis and squamous cell cancer of the tongue who presented with increasing shortness of breath and myalgias. He was admitted for management of COVID-19 pneumonia complicated by acute respiratory failure with hypoxia. Diagnosis: Stroke: No - Discharge Data Discharge Date: 03/15/21 Discharge Disposition: Home, Self-Care 01 Condition: Fair - Referral to Home Health Primary Care Physician: PCP Unknown - Discharge Diagnosis/Problem(s) (1) Pneumonia due to COVID-19 virus SNOMED Code(s): 951034997759704407 ICD Code: U07.1 - COVID-19; J12.82 - PNEUMONIA DUE TO CORONAVIRUS DISEASE 2018 Status: Acute Current Visit: Yes (2) Acute respiratory failure due to COVID-19 SNOMED Code(s): 316927742 ICD Code: U07.1 - COVID-19; J96.00 - ACUTE RESPIRATORY FAILURE, UNSP W HYPOXIA OR HYPERCAPNIA Status: Acute Current Visit: Yes (3) History of squamous cell carcinoma SNOMED Code(s): 20084334027747 ICD Code: Z85.89 - PERSONAL HISTORY OF MALIGNANT NEOPLASM OF ORGANS AND SYSTEMS Status: Chronic Current Visit: No (4) Thoracic aortic aneurysm without rupture SNOMED Code(s): 29045180 ICD Code: I71.2 - THORACIC AORTIC ANEURYSM, WITHOUT RUPTURE Status: Chronic Current Visit: No - Patient Summary/Data Hospital Course: Freddie presented to the emergency room with increasing cough, shortness of breath and myalgias. Work-up in the emergency room was suggestive of COVID-19 pneumonia complicated by acute respiratory failure with hypoxia. He was admitted to the hospital and managed with 5 days of remdesivir, IV dexamethasone as well as systemic anticoagulation (home medication was continued). Initially he was requiring a fair amount of supplemental oxygen but we have been able to wean this down throughout the course of the hospital stay. He has completed 5 days of remdesivir and he tolerated this medication well. He has continued on steroids throughout the course of the hospital stay and has tolerated these we ll. He does continue to require supplemental oxygen at 3 L/min. We did try him off oxygen on the day of discharge and he was only 86% on room air. Saturations improved to about 94% with 3 L of supplemental oxygen. I would anticipate he will need supplemental oxygen for a period of time as he further recovers from Covid. This period of time is unknown but could be up to a couple of months or potentially longer. He was interested in home oxygen and would like to go home. He is moving well enough and has adequate strength and appetite that I think he will be safe at home. Plan is for a quick taper of his steroids over the next few days. He will be set up for home oxygen as discussed below. Follow-up will be in a couple of weeks. He is 14 days into his illness and I think he has com pleted adequate quarantine at this time. Also noted during the hospital stay was significant hyperglycemia after the steroids were initiated. His hemoglobin A1c level was 7.2 suggesting diabetes. We did have him on insulin during the course of the hospital stay but I suspect that most of his hyperglycemia was steroid related. I would anticipate that his blood sugar level should improve as the steroids are tapered and discontinued. We did discuss potential pharmacological therapy including Metformin. We also discussed some lifestyle changes including increased activity and decreased carbohydrate intake. At this time he would like to try to lose some more weight and improve his diet before starting on a medication. Follow-up testing with hemoglobin A1c could be considered in 3 to 6 months depending on his success with lifestyle changes. [id number] encounter for home oxygen -date of encounter is 03/15/2021 Oxygen saturations on room air -86% Oxygen saturations on 3 L -94% The patient is currently being treated for and recovering from COVID-19 pneumonia. He continues to require supplemental oxygen. He would benefit from ongoing oxygen therapy at home to help maintain oxygen saturations greater than 90%. He is at risk for increased morbidity and mortality without the supplemental oxygen. Hopefully this can be weaned off over the coming days weeks or potentially months depending on how well he progresses. - Patient Instructions Diet: Regular Diet as Tolerated Activity: As Tolerated Showering/Bathing: May Shower Notify Provider of: Fever Other/Special Instructions: 1. You were in the hospital for management of pneumonia caused by COVID-19. Your pneumonia was complicated by acute respiratory failure necessitating supplemental oxygen. Your condition has been improving with treatment provided here in the hospital. You do continue to require supplemental oxygen and I would recommend that you continue to use this at home until your oxygen saturations improve further. I also recommend a short tapering dose of steroids. Please take dexamethasone 4 mg daily at 3 PM for 2 days and then 2 mg daily at 3 PM for 2 days. You may increase your activity as tolerated. If you have access to a pulse oximeter you could consider checking your oxygen several times a day. Appropriate times to check would be when you are at rest, when you are at rest without oxygen, after an activity such as walking or showering and anytime you are feeling short of breath. If your oxygen saturations consistently are above 90 you may taper your oxygen and hopefully discontinue it in the near future. 2. Follow up with Dr. Hoskins in about 2 weeks to ensure that you continue to improve after hospital stay. You should discuss rechecking hemoglobin A1c level in several months. I would encourage you to increase your physical activity and cut back on carbohydrates in an attempt to manage her diabetes without the need for medications. 3. Please seek medical attention if you have increasing shortness of breath, high fever or if you develop significant chest pain. - Discharge Plan *PRESCRIPTION DRUG MONITORING PROGRAM REVIEWED*: No *COPY OF PRESCRIPTION DRUG MONITORING REPORT IN PATIENT LIS: No Prescriptions/Med Rec: dexAMETHasone [Dexamethasone] 2 mg PO ASDIRECTED #6 tablet Home Medications: Home Meds Temazepam [Restoril] 30 mg PO BEDTIME 03/30/13 [History] Lisinopril 40 mg PO DAILY 09/27/14 [History] Aspirin 1,000 mg PO BID 04/22/18 [History] Metoprolol Succinate [Toprol XL 100mg] 100 mg PO DAILY 04/22/18 [History] Rivaroxaban [Xarelto] 20 mg PO DAILY 04/22/18 [History] cloNIDine HCL [Catapres] 0.1 mg PO BID 04/22/18 [History] dexAMETHasone [Dexamethasone] 2 mg PO ASDIRECTED #6 tablet 03/15/21 [Rx] Oxygen Therapy Mode: Nasal Cannula Oxygen Flow Rate (L/min): 3 Patient Handouts: 10 Things You Can Do to Manage Your COVID-19 Symptoms at Home - CDC (12/09/2020), Type 2 Diabetes Mellitus, Diagnosis, Adult Referrals: Todd Hoskins MD [Physician] - (2 weeks - f/u hospital stay for covid ) - Discharge Summary/Plan Comment DC Time >30 min.: Yes Total # of Minutes for Discharge Time: 45-set up home oxygen - Patient Data Vitals - Most Recent: Last Vital Signs Temp 36.4 C 03/15/21 07:00 Pulse 88 03/15/21 07:00 Resp 16 03/15/21 07:00 BP 90/73 03/15/21 07:00 Pulse Ox 90 L 03/15/21 07:30 Weight - Most Recent: 97.976 kg Lab Results - Last 24 hrs: Laboratory Results - last 24 hr 03/14/21 03/14/21 03/14/21 Range/Units 11:22 16:28 20:50 POC Glucose 327 H 300 H 349 H (74-106) mg/dL 03/15/21 Range/Units 07:34 POC Glucose 298 H (74-106) mg/dL Med Orders - Current: Current Medications Acetaminophen (Acetaminophen 325 Mg Tab) 650 mg PO Q4H PRN PRN Reason: Fever Greater Than 101 Last Admin: 03/10/21 13:34 Dose: 650 mg Documented by: Acetaminophen/Codeine Phosphate (Acetaminophen/Codeine 300-30 Mg Tab) 1 tab PO Q4H PRN PRN Reason: Pain Last Admin: 03/14/21 20:34 Dose: 1 tab Documented by: Clonidine HCl (Clonidine 0.1 Mg Tab) 0.1 mg PO BID [facility] Last Admin: 03/15/21 08:11 Dose: Not Given Documented by: Dexamethasone (Dexamethasone 4 Mg/Ml Sdv) 6 mg IVPUSH Q24H [facility] Stop: 03/20/21 14:01 Last Admin: 03/14/21 14:52 Dose: 6 mg Documented by: Dextrose/Water (50% Dextrose In Water 50 Ml Syringe) 50 ml IVPUSH ASDIRECTED PRN PRN Reason: Hypoglycemia Glucagon (Glucagon,Human Recombinant 1 Mg Vial) 1 mg IM ASDIRECTED PRN PRN Reason: Hypoglycemia Insulin Glargine (Insulin Glargine,Human Rec. Analog 100 Units/Ml 3 Ml Pen) 10 units SUBCUT BEDTIME [facility] Last Admin: 03/14/21 20:36 Dose: 10 units Documented by: Insulin Human Lispro (Insulin Lispro 100 Unit/Ml 3 Ml Kwikpen) 0 unit SUBCUT TIDMEALS [facility]; Protocol Last Admin: 03/15/21 08:11 Dose: 3 units Documented by: Lisinopril (Lisinopril 20 Mg Tab) 40 mg PO DAILY [facility] Last Admin: 03/15/21 08:12 Dose: Not Given Documented by: Metoprolol Succinate (Metoprolol Succinate 50 Mg Tab.Er) 100 mg PO DAILY [facility] Last Admin: 03/15/21 08:12 Dose: Not Given Documented by: Rivaroxaban (Rivaroxaban 10 Mg Tab) 20 mg PO DAILY [facility] Last Admin: 03/15/21 09:09 Dose: 20 mg Documented by: Temazepam (Temazepam 15 Mg Cap) 30 mg PO BEDTIME [facility] Last Admin: 03/14/21 20:35 Dose: 30 mg Documented by: Trolamine Salicylate (Trolamine Salicylate/Aloe Vera 10% Crm 85 Gm Tube) 0 gm TOP Q1H PRN PRN Reason: Pain/Fever Last Admin: 03/14/21 20:39 Dose: 1 applic Documented by: Discontinued Medications Dexamethasone (Dexamethasone 4 Mg/Ml Sdv) 6 mg IVPUSH DAILY [facility] Stop: 03/19/21 09:01 Last Admin: 03/10/21 13:32 Dose: 6 mg Documented by: Enoxaparin Sodium (Enoxaparin 40 Mg/0.4 Ml Syringe) 40 mg SUBCUT DAILY [facility] Remdesivir 200 mg/ Sodium (Chloride) 250 mls @ 250 mls/hr IV ONETIME ONE Stop: 03/10/21 14:59 Last Admin: 03/10/21 13:36 Dose: 250 mls/hr Documented by: Remdesivir 100 mg/ Sodium (Chloride) 100 mls @ 100 mls/hr IV Q24H [facility] Stop: 03/14/21 14:59 Last Admin: 03/14/21 14:52 Dose: 100 mls/hr Documented by: Sodium Chloride (Normal Saline) 80 mls @ 3 mls/sec IV ASDIRECTED [facility] Last Admin: 03/11/21 21:20 Dose: 3 mls/sec Documented by: Iopamidol (Iopamidol 612 Mg/Ml 150 Ml Bottle) 150 ml IV . DIRECTED [facility] Last Admin: 03/11/21 21:20 Dose: 150 ml Documented by:
== END 2021-03-15 12:00 | disposition home or self-care (01) | DRG 177 ==
LOC: JP.ED 10:59 → JP.2SS 14:51
PROVIDERS: ADMIT Internal Medicine; ATTEND Internal Medicine
PROC: 8E0ZXY6 Isolation (ICD-10-PCS; principal; 2021-03-10)
PROC: XW033E5 Introduction of Remdesivir Anti-infective into Peripheral Vein, Percutaneous Approach, New Technology Group 5 (ICD-10-PCS; 2021-03-10)
PROC: 3E0333Z Introduction of Anti-inflammatory into Peripheral Vein, Percutaneous Approach (ICD-10-PCS; 2021-03-10)
DX: U07.1 COVID-19 (principal); E78.00 Pure hypercholesterolemia, unspecified; J12.82 Pneumonia due to coronavirus disease 2019; J96.01 Acute respiratory failure with hypoxia; M19.90 Unspecified osteoarthritis, unspecified site; I71.2 Thoracic aortic aneurysm, without rupture; M54.9 Dorsalgia, unspecified; R63.4 Abnormal weight loss; Z85.810 Personal history of malignant neoplasm of tongue; Z88.8 Allergy status to other drugs, medicaments and biological substances; E78.5 Hyperlipidemia, unspecified; Z79.82 Long term (current) use of aspirin; Z79.899 Other long term (current) drug therapy; I10 Essential (primary) hypertension; G47.00 Insomnia, unspecified; N62 Hypertrophy of breast; E66.9 Obesity, unspecified; G89.29 Other chronic pain; E11.65 Type 2 diabetes mellitus with hyperglycemia; Z79.4 Long term (current) use of insulin; Z86.718 Personal history of other venous thrombosis and embolism; Z79.01 Long term (current) use of anticoagulants; Z98.52 Vasectomy status; Z90.49 Acquired absence of other specified parts of digestive tract; Z86.010 Personal history of colon polyps; Z68.32 Body mass index [BMI] 32.0-32.9, adult; Z85.89 Personal history of malignant neoplasm of other organs and systems
CPT/HCPCS: 36415; 71045 ×2; 80048; 80076; 83605; 84145; 85025; 86140; 99285; A9270; J1100; J7050; 74177; 76700; 80053; 82947; 83036; 85027; 85379; 93005; 94762; J1815; J1815-GY; Q9967

== ENCOUNTER 2021-03-19 14:06 | Emergency (ER) | payer MEDICARE, BC ==
--- NOTE | 2021-03-19 14:15 | EDM.PDOC ---
ED HPI GENERAL MEDICAL PROBLEM - General Stated Complaint: POSSIBLE STROKE Time Seen by Provider: 03/19/21 14:06 Source of Information: Reports: Family History Limitations: Reports: Physical Impairment (Patient has a very significant expressive aphasia due to likely left cerebral infarction) - History of Present Illness INITIAL COMMENTS - FREE TEXT/NARRATIVE: 65-year-old male who recently got discharged from the hospital 4 days ago after being treated for Covid, now presents with right-sided deficits especially the arm and face, significant expressive aphasia, with a known last normal of 12 hours ago. He is on Coumadin. Additional history was obtained from the when she arrived. She said that he had a left-sided headache last night and she was rubbing his neck which helped but he had no aphasia at that time or no physical deficits. He got up to go lay on the couch at about 2 AM, she tried to wake him up at 10:00 and something was not right but he refused to come back to the hospital at that time but when he was not improved by 2 in the afternoon she insisted he come in. The patient is displaying obvious visual concentration to the left, if I speak it him on the right side he will not look over. Right arm has deficits. NIH is 10 at this time. Onset: Unknown/Unsure (Last known well was just over 12 hours ago) Associated Symptoms: Denies: Nausea/Vomiting, Shortness of Breath - Related Data Allergies Allergy/AdvReac Type Severity Reaction Status Date / Time hydrochlorothiazide Allergy Severe Anaphylactic Verified 03/19/21 14:25 Shock amlodipine Allergy Dizziness Verified 03/19/21 14:25 Home Meds: Home Meds Temazepam [Restoril] 30 mg PO BEDTIME 03/30/13 [History] Lisinopril 40 mg PO DAILY 09/27/14 [History] Metoprolol Succinate [Toprol XL 100mg] 100 mg PO DAILY 04/22/18 [History] Acetaminophen with Codeine [Acetaminophen-Cod #4] 1 tab PO ASDIRECTED 03/19/21 [History] Warfarin [Coumadin] 5 mg PO DAILY 03/19/21 [History] Past Medical History HEENT History: Reports: Other (See Below) 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 Cardiovascular History: Reports: Aneurysm, Blood Clots/VTE/DVT, High Cholesterol, Hypertension, Other (See Below) Other Cardiovascular History: enlarged aorta Gastrointestinal History: Reports: Colon Polyp Genitourinary History: Reports: None Musculoskeletal History: Reports: Arthritis, Back Pain, Chronic Endocrine/Metabolic History: Reports: Obesity/BMI 30+ Hematologic History: Reports: Anticoagulation Therapy Oncologic (Cancer) History: Reports: Squamous Cell Carcinoma - Infectious Disease History Infectious Disease History: Reports: Novel Coronavirus - Past Surgical History Head Surgeries/Procedures: Reports: None HEENT Surgical History: Reports: Naso-Sinus Surgery, Other (See Below) Other HEENT Surgeries/Procedures: 01/02/2006 surgery to remove tongue base cancer Cardiovascular Surgical History: Reports: None GI Surgical History: Reports: Appendectomy, Colonoscopy Male Surgical History: Reports: Vasectomy Endocrine Surgical History: Reports: None Musculoskeletal Surgical History: Reports: Arthroscopic Knee, Shoulder Surgery, Other (See Below) Other Musculoskeletal Surgeries/Procedures:: non-malignant arm pit turmor removed Oncologic Surgical History: Reports: Other (See Below) Other Oncologic Surgeries/Procedures: non-malignant tumor removed from arm-pit; squamous cell base of tongue Dermatological Surgical History: Reports: None Social & Family History - Family History Family Medical History: No Pertinent Family History Cardiac: Reports: Heart Failure Respiratory: Reports: COPD Oncologic: Reports: Cervix, Esophageal, Thyroid - Caffeine Use Caffeine Use: Reports: Coffee ED ROS GENERAL - Review of Systems Review Of Systems: See Below Constitutional: Denies: Fever, Chills Respiratory: Reports: Shortness of Breath (Some waxing and waning shortness of breath since his Covid infection recently) GI/Abdominal: Denies: Nausea, Vomiting Skin: Reports: Bruising (Bruising easily, especially in the extremities) ED EXAM, NEURO - Physical Exam Exam: See Below Exam Limited By: No Limitations General Appearance: Alert, No Apparent Distress Eye Exam: Bilateral Eye: Other (No disconjugate gaze but he is focusing to the left) Head Exam: Atraumatic (No evidence of trauma) Neck: Supple, Non-Tender Respiratory/Chest: No Respiratory Distress, Lungs Clear Cardiovascular: Regular Rate, Rhythm, Tachycardia (Mild tachycardia, regular rhythm) GI/Abdominal: Soft, Non-Tender Neurological: Alert, Difficulty Walking (Unable to walk), Other (Significant weakness and lack of coordination to the right arm, some right facial drooping). No: Oriented x 3 (Unable to answer questions appropriately, disoriented to place and person) Extremities: No: Pedal Edema Skin Exam: Warm, Dry, Other (Scattered bruises on the forearms) Comments: Current NIH scale is 10 Course - Vital Signs Last Recorded V/S: Last Vital Signs Temp 96.6 F L 03/19/21 14:15 Pulse 81 03/19/21 15:00 Resp 19 03/19/21 15:00 BP 122/84 03/19/21 15:00 Pulse Ox 96 03/19/21 15:00 - Orders/Labs/Meds Labs: Laboratory Tests 03/19/21 03/19/21 03/19/21 Range/Units 14:21 14:21 14:21 WBC 16.0 H (4.5-11.0) K/uL RBC 4.82 (4.30-5.90) M/uL Hgb 14.5 (12.0-15.0) g/dL Hct 42.6 (40.0-54.0) % MCV 88 (80-98) fL MCH 30 (27-31) pg MCHC 34 (32-36) % Plt Count 454 H (150-400) K/uL Add Manual Diff Yes Neutrophils % (Manual) 89 H (36-66) % Band Neutrophils % 2 L (5-11) % Lymphocytes % (Manual) 4 L (24-44) % Monocytes % (Manual) 5 (2-6) % Atypical Lymphocytes Rare PT 18.9 H (9.2-10.6) sec INR 1.9 Sodium 129 L (140-148) mmol/L Potassium 4.3 (3.6-5.2) mmol/L Chloride 93 L (100-108) mmol/L Carbon Dioxide 21 (21-32) mmol/L Anion Gap 19.3 H (5.0-14.0) mmol/L BUN 40 H (7-18) mg/dL Creatinine 1.4 H (0.8-1.3) mg/dL Est Cr Clr Drug Dosing 52.60 mL/min Estimated GFR (MDRD) 51 L (>60) Glucose 276 H (74-106) mg/dL Calcium 9.0 (8.5-10.1) mg/dL Total Bilirubin 0.9 (0.2-1.0) mg/dL AST 26 (15-37) U/L ALT 50 (12-78) U/L Alkaline Phosphatase 52 (46-116) U/L Total Protein 6.6 (6.4-8.2) g/dL Albumin 3.0 L (3.4-5.0) g/dL Globulin 3.6 H (2.3-3.5) g/dL Albumin/Globulin Ratio 0.8 L (1.2-2.2) - Re-Assessments/Exams Free Text/Narrative Re-Assessment/Exam: 03/19/21 14:33 Patient shows mild sinus tachycardia on cardiac monitoring. Urgent CT scan of the head was done, currently being read by radiology but no evidence of bleed on my interpretation. Patient is on Coumadin, CBC INR and CMP are drawn. Neurologic consultation in [place] will be obtained. 03/19/21 14:59 INR returned 1.9, Dr. Sears of the interventional stroke team at [facility] in [place] accepted the patient for urgent transfer. We weren't able to do a CT angiogram of the head and neck with follow-through CT perfusion studies which he requested. Saline lock was started but the patient was not giving any intervention here. Images were pushed through to [place]. There is a significant delay in the formal radiologic read of the CT scan, it is still pending. IMPRESSION: 1. No intracranial hemorrhage. 2. Moderate subacute infarcts in the left frontal and left parietal lobes. 3. Mild microangiopathic changes and diffuse parenchymal volume loss. Departure - Departure Time of Disposition: 16:06 Disposition: DC/Tfer to Acute Hospital 02 Clinical Impression: Cerebrovascular accident (CVA) Qualifiers: CVA mechanism: occlusion Precerebral and cerebral artery: middle cerebral artery Laterality of affected vessel: left Qualified Code(s): I63.512 - Cerebral infarction due to unspecified occlusion or stenosis of left middle cerebral artery - Discharge Information Referrals: Todd Hoskins MD [Primary Care Provider] - Forms: ED Department Discharge Care Plan Goals: Patient was urgently transferred to [facility] for further neurologic evaluation and intervention. His physical findings were stable and unchanged on discharge. Vitals were stable.
[2021-03-19 14:59] VITALS: PULSE 81
[2021-03-19 15:01] VITALS: BP 122/84
--- NOTE | 2021-03-19 15:23 | CRLCT ---
For Patients: As a result of the Century Cures Act, medical imaging exams and procedure reports are released immediately into your electronic medical record. You may view this report before your referring provider. If you have questions, please contact your health care provider. DATE: 03/19/2021 CLINICAL HISTORY: Patient with focal neurological deficits. TECHNIQUE: Standard CT scanning of the head was performed. COMPARISON: None. FINDINGS: There is no intracranial hemorrhage. There are moderate subacute infarcts in the left frontal and left parietal lobes. There are mild microangiopathic changes. There is diffuse parenchymal volume loss. There is no mass effect or midline shift. The calvarium is unremarkable. The orbits are unremarkable. The paranasal sinuses are unremarkable. The mastoid air cells are unremarkable. The soft tissues are unremarkable. IMPRESSION: 1. No intracranial hemorrhage. 2. Moderate subacute infarcts in the left frontal and left parietal lobes. 3. Mild microangiopathic changes and diffuse parenchymal volume loss. Please note that all CT scans at this facility use dose modulation, iterative reconstruction, and/or weight-based dosing when appropriate to reduce radiation dose to as low as reasonably achievable. Dictated by Haven Remy MD @ 03/19/2021 6:00:31 PM (Electronically Signed)
== END 2021-03-19 15:30 ==
LOC: JP.ED 14:06
DX: I63.512 Cerebral infarction due to unspecified occlusion or stenosis of left middle cerebral artery (principal); E78.00 Pure hypercholesterolemia, unspecified; I10 Essential (primary) hypertension; E66.9 Obesity, unspecified; Z68.30 Body mass index [BMI] 30.0-30.9, adult; Z79.899 Other long term (current) drug therapy; Z86.718 Personal history of other venous thrombosis and embolism; Z79.01 Long term (current) use of anticoagulants; Z86.16 Personal history of COVID-19
CPT/HCPCS: 36415; 70450; 80053; 85025; 85610; 99285-25

== ENCOUNTER 2021-07-26 20:32 | Emergency (ER) | payer MEDICARE, BC ==
[2021-07-26] MEDS ORDERED: Sodium Chloride 0.9% 10 ML Syringe FLUSH PRN (20:40)
[2021-07-26] MEDS ORDERED: Sodium Chloride 0.9% 75 ML IV SCH (21:15)
[2021-07-26] MEDS ORDERED: Iopamidol 612 MG/ML 100 ML Bottle IV SCH (21:15)
[2021-07-26] MEDS ORDERED: Metoprolol Succinate 25 MG Tab.ER PO ONE (22:47)
[2021-07-26 23:00] VITALS: BP 151/91; PULSE 99
[2021-07-26 23:53] LABS: CORONAVIRUS COVID-19 NAA NEGATIVE (NEGATIVE)
[2021-07-26] MEDS ORDERED: cefTRIAXone 2 GM in Sodium Chloride 0.9% 50 ML IV ONE (23:54)
== END 2021-07-27 01:03 ==
LOC: JP.ED 20:32
DX: J69.0 Pneumonitis due to inhalation of food and vomit (principal); R09.02 Hypoxemia; R13.10 Dysphagia, unspecified; R22.1 Localized swelling, mass and lump, neck; I10 Essential (primary) hypertension; E78.00 Pure hypercholesterolemia, unspecified; E66.9 Obesity, unspecified; Z68.31 Body mass index [BMI] 31.0-31.9, adult; Z79.82 Long term (current) use of aspirin; Z79.899 Other long term (current) drug therapy; Z79.01 Long term (current) use of anticoagulants; Z20.822 Contact with and (suspected) exposure to COVID-19; Z88.8 Allergy status to other drugs, medicaments and biological substances
CPT/HCPCS: 0241U; 36415; 70491; 71046; 71250; 80053; 83605; 83880; 84484; 85025; 85610; 96365; 99283; 99285-25; A9270-GY; J0696; Q9967

== ENCOUNTER 2022-06-26 14:17 | Observation (INO) | payer MEDICARE, BC ==
[2022-06-26 15:16] LABS: ESTIMATED GFR 97 mL/min (>60)
[2022-06-26] MEDS ORDERED: Potassium Chloride 10 MEQ in Premix Bag 1 BAG IV ONE (15:18)
[2022-06-26] MEDS ORDERED: Sodium Chloride 0.9% 1,000 ML IV SCH ×2 (15:30→16:26)
[2022-06-26] MEDS ORDERED: Potassium Chloride 20 MEQ Tab.ER PO ONE ×2 (16:00→19:00)
[2022-06-26] MEDS ORDERED: Ondansetron 4 MG/2 ML SDV IV PRN (16:26)
[2022-06-26] MEDS ORDERED: Acetaminophen 325 MG Tab PO PRN (16:26)
[2022-06-26] MEDS ORDERED: Polyethylene Glycol 3350 Powder 17 GM Packet PO PRN (16:26)
[2022-06-26] MEDS ORDERED: Sodium Chloride 0.9% 10 ML Syringe FLUSH PRN (16:26)
[2022-06-26 16:50] LABS: CORONAVIRUS COVID-19 NAA NEGATIVE (NEGATIVE)
[2022-06-26] MEDS: Potassium Chloride 10 MEQ in Premix Bag 1 BAG IV SCH ×3 (16:59→20:11)
[2022-06-26] MEDS: Pantoprazole 40 MG Vial IV SCH (17:01)
[2022-06-26] MEDS: atorvaSTATin 20 MG Tab PO SCH (20:12)
[2022-06-26] MEDS: Gabapentin 400 MG Cap PO SCH (20:13)
[2022-06-26] MEDS: Morphine 15 MG Tab.ER PO SCH (20:23)
[2022-06-26] MEDS ORDERED: Trolamine Salicylate/Aloe Vera 10% Crm 85 GM Tube TOP PRN (20:40)
[2022-06-26] MEDS: cefTRIAXone 1 GM in Sodium Chloride 0.9% 50 ML IV SCH (22:27)
[2022-06-27] MEDS: Pantoprazole 40 MG Vial IV SCH ×2 (05:04→17:52)
[2022-06-27] MEDS: Aspirin 325 MG Tab.EC PO SCH (08:08)
[2022-06-27] MEDS: Gabapentin 400 MG Cap PO SCH ×2 (08:08→20:23)
[2022-06-27] MEDS: Tamsulosin 0.4 MG Cap.ER PO SCH (08:08)
[2022-06-27] MEDS: Metoprolol Succinate 25 MG Tab.ER PO SCH (08:10)
[2022-06-27] MEDS: Morphine 15 MG Tab.ER PO SCH ×2 (09:57→20:25)
[2022-06-27] MEDS ORDERED: Barium Sulfate 60% w/w Esophageal Crm 454 GM Tube PO PRN (11:29)
[2022-06-27] MEDS ORDERED: Barium Sulfate 98% Powder for Susp 340 GM Bottle PO PRN (11:29)
[2022-06-27] MEDS: Gabapentin 300 MG Cap PO SCH (15:04)
[2022-06-27] MEDS: atorvaSTATin 20 MG Tab PO SCH (20:23)
[2022-06-27] MEDS: cefTRIAXone 1 GM in Sodium Chloride 0.9% 50 ML IV SCH (20:23)
[2022-06-28] MEDS: Pantoprazole 40 MG Vial IV SCH (05:19)
[2022-06-28] MEDS: Aspirin 325 MG Tab.EC PO SCH (08:08)
[2022-06-28] MEDS: Tamsulosin 0.4 MG Cap.ER PO SCH (08:09)
[2022-06-28] MEDS: Metoprolol Succinate 25 MG Tab.ER PO SCH (08:09)
[2022-06-28] MEDS: Gabapentin 400 MG Cap PO SCH (08:09)
[2022-06-28] MEDS: Morphine 15 MG Tab.ER PO SCH (09:07)
[2022-06-28 11:14] VITALS: BP 96/66; PULSE 68
[2022-06-28] MEDS: Gabapentin 300 MG Cap PO SCH (15:01)
== END 2022-06-28 16:30 | disposition home or self-care (01) ==
LOC: JP.ED 14:17 → JP.MS 15:56
PROVIDERS: ADMIT Hospitalist; ATTEND Hospitalist
DX: M79.2 Neuralgia and neuritis, unspecified (principal); I69.391 Dysphagia following cerebral infarction; E86.0 Dehydration; E87.6 Hypokalemia; N30.00 Acute cystitis without hematuria; I10 Essential (primary) hypertension; E78.00 Pure hypercholesterolemia, unspecified; M19.90 Unspecified osteoarthritis, unspecified site; E11.9 Type 2 diabetes mellitus without complications; E66.9 Obesity, unspecified; G89.29 Other chronic pain; M54.9 Dorsalgia, unspecified; Z79.899 Other long term (current) drug therapy; Z79.82 Long term (current) use of aspirin; Z79.01 Long term (current) use of anticoagulants; Z88.8 Allergy status to other drugs, medicaments and biological substances; Z88.2 Allergy status to sulfonamides; Z86.16 Personal history of COVID-19; Z98.890 Other specified postprocedural states; Z20.822 Contact with and (suspected) exposure to COVID-19
CPT/HCPCS: 0241U; 36415; 71045; 71045-26; 74230; 74230-26; 80048; 80053; 81001; 83735; 84132; 85025; 85610; 86140; 87086; 92526-GN; 92611-GN; 99222; 99232; 99238; A9270-GY; C9113; J0696; J3480; J7030

== ENCOUNTER 2023-04-17 11:28 | Emergency (ER) | payer MEDICARE, BC ==
[2023-04-17] MEDS ORDERED: Ondansetron 4 MG/2 ML SDV IVPUSH ONE (12:16)
[2023-04-17] MEDS ORDERED: Sodium Chloride 0.9% 10 ML Syringe FLUSH PRN (12:16)
[2023-04-17] MEDS ORDERED: Sodium Chloride 0.9% 1,000 ML IV ONE (12:16)
[2023-04-17] MEDS ORDERED: diphenhydrAMINE 50 MG/ML SDV IVPUSH ONE (12:18)
[2023-04-17 12:32] LABS: BASOPHILS PERCENT AUTO 0.1 % (0.1-1.3); EOSINOPHILS ABSOLUTE AUTO 0.05 K/uL (0.00-0.40); EOSINOPHILS PERCENT AUTO 0.6 % (0.0-5.4); HEMATOCRIT 44.3 % (38.4-49.7); HEMOGLOBIN 15.2 g/dL (12.9-16.9); IMMATURE GRAN PERCENT AUTO 0.1 % (0.0-0.7); LYMPHOCYTES ABSOLUTE AUTO 0.49 K/uL (0.8-3.3); LYMPHOCYTES PERCENT AUTO 5.6 % (11.4-47.7); MEAN CORPUSCULAR HEMOGLOBIN 29.6 pg (31.6-35.5); MEAN CORPUSCULAR HGB CONC 34.3 g/dL (31.6-35.5); MEAN CORPUSCULAR VOLUME 86.4 fL (81.4-99.0); MONOCYTES ABSOLUTE AUTO 0.74 K/uL (0.20-0.90); MONOCYTES PERCENT AUTO 8.5 % (3.3-12.6); NEUTROPHILS ABSOLUTE AUTO 7.43 K/uL (1.0-7.6); NEUTROPHILS PERCENT AUTO 85.1 % (40.0-78.1); PLATELET COUNT,PLT 309 K/uL (130-375); RED BLOOD CELL COUNT 5.13 M/uL (4.14-5.76); WHITE BLOOD CELL COUNT,WBC 8.7 K/uL (3.2-11.0)
[2023-04-17 12:35] LABS: BASOPHILS ABSOLUTE AUTO 0.01 K/uL (0.00-0.10); IMMATURE GRAN ABSOLUTE AUTO 0.01 K/uL (0.00-0.23)
[2023-04-17] MEDS ORDERED: Pantoprazole 40 MG Vial IVPUSH ONE (12:35)
[2023-04-17] MEDS ORDERED: Pantoprazole 40 MG Vial ONE (12:45)
[2023-04-17 12:57] LABS: A/G RATIO 1.2 (1.2-2.2); ALANINE AMINOTRANSFERASE,ALT 12 U/L (12-78); ALKALINE PHOSPHATASE 69 U/L (46-116); ASPARTATE AMNIOTRANSFERASE,AST 16 U/L (15-37); BILIRUBIN TOTAL 0.7 mg/dL (0.2-1.0); BLOOD UREA NITROGEN,BUN 18 mg/dL (7-18); CARBON DIOXIDE,CO2 27 mmol/L (21-32); CHLORIDE,CL 98 mmol/L (100-108); CREATININE 0.8 mg/dL (0.8-1.3); ESTIMATED GFR 97 mL/min (>60); GLUCOSE RANDOM 234 mg/dL (74-106); POTASSIUM,K 3.4 mmol/L (3.6-5.2); PROTEIN TOTAL,TP 7.4 g/dL (6.4-8.2); SODIUM,NA 136 mmol/L (140-148)
[2023-04-17 13:02] LABS: ANION GAP 14.4 mmol/L (5.0-14.0)
[2023-04-17 13:06] LABS: INR 2.5; PROTHROMBIN TIME 23.6 sec (9.2-10.6); PTT,PARTIAL THROMBOPLSTIN TIME 30.3 sec (21.8-27.3)
[2023-04-17] MEDS ORDERED: Aspirin 81 MG Tab.Chew PO ONE (13:16)
[2023-04-17] MEDS ORDERED: Metoprolol Tartrate 25 MG Tab PO ONE (13:36)
[2023-04-17] MEDS ORDERED: Metoprolol Tartrate 5 MG in Sodium Chloride 0.9% 50 ML IV ONE (15:23)
[2023-04-17 15:37] VITALS: BP 155/106; PULSE 99
== END 2023-04-17 15:09 | disposition home or self-care (01) ==
LOC: JP.ED 11:28
DX: L50.9 Urticaria, unspecified (principal); I21.4 Non-ST elevation (NSTEMI) myocardial infarction; I69.351 Hemiplegia and hemiparesis following cerebral infarction affecting right dominant side; Z86.718 Personal history of other venous thrombosis and embolism; R47.01 Aphasia; I10 Essential (primary) hypertension; E11.9 Type 2 diabetes mellitus without complications; E66.9 Obesity, unspecified; E78.00 Pure hypercholesterolemia, unspecified; Z88.8 Allergy status to other drugs, medicaments and biological substances; Z79.899 Other long term (current) drug therapy; Z86.16 Personal history of COVID-19; Z68.25 Body mass index [BMI] 25.0-25.9, adult
CPT/HCPCS: 36415; 80053; 83605; 83690; 84484; 85025; 85610; 85730; 93005; 96361; 96374; 96375; 99284; A9270; C9113; J1200; J2405; J3490; J7030; 93010; 99285